=== PATIENT | male | born 1950 | race Caucasian/White ===

== ENCOUNTER 2016-10-25 14:09 | Emergency (ER) | payer MEDICARE, OTHER ==
[2016-10-25] MEDS ORDERED: cefTRIAXone 1 GM in SODIUM CHLORIDE 0.9% MINIBAG 100 ML IV STA (17:03)
[2016-10-25] MEDS ORDERED: AZITHROMYCIN INJ 500 MG in SODIUM CHLORIDE 0.9% 250 ML IV STA (17:08)
[2016-10-25] MEDS ORDERED: cefTRIAXone 1 GM VIAL ONE (17:10)
== END 2016-10-25 19:03 | disposition short-term general hospital (02) ==
DX: J18.1 Lobar pneumonia, unspecified organism (principal); L03.116 Cellulitis of left lower limb; E11.22 Type 2 diabetes mellitus with diabetic chronic kidney disease; I12.9 Hypertensive chronic kidney disease with stage 1 through stage 4 chronic kidney disease, or unspecified chronic kidney disease; N18.9 Chronic kidney disease, unspecified; Z87.01 Personal history of pneumonia (recurrent); Z79.84 Long term (current) use of oral hypoglycemic drugs; Z79.82 Long term (current) use of aspirin; Z79.899 Other long term (current) drug therapy

== ENCOUNTER 2016-10-25 19:05 | Outpatient (CLI) | payer MEDICARE, OTHER | END 2016-10-25 23:59 | disposition short-term general hospital (02) | DX: R06.02 Shortness of breath (principal) | CPT/HCPCS: A0170; A0425; A0426 ==

== ENCOUNTER 2017-06-16 13:50 | Outpatient (CLI) | payer MEDICARE, OTHER ==
[2017-06-16 19:37] LABS: IRON 55 ug/dL (45-182); TOTAL IRON BINDING CAPACITY 280 ug/dL (250-450); TRANSFERRIN 200 mg/dL (180-329)
[2017-06-16 20:07] LABS: HEMOGLOBIN A1C 0.6 g/dL
== END 2017-06-16 13:51 | disposition home or self-care (01) ==
LOC: LAB.WCP 13:50
PROVIDERS: ATTEND Family Medicine
DX: N18.5 Chronic kidney disease, stage 5 (principal); E11.9 Type 2 diabetes mellitus without complications; D64.9 Anemia, unspecified
CPT/HCPCS: 36415; 82728; 83036; 83540; 84466

== ENCOUNTER 2018-03-25 13:27 | Outpatient (CLI) | payer MEDICARE, OTHER ==
[2018-03-25 20:42] LABS: BASOPHILS # (AUTO) 0.1 10^3/uL (0.0-0.1); EOSINOPHILS # (AUTO) 0.7 10^3/uL (0.0-0.7); EOSINOPHILS % (AUTO) 13.6 %; HGB - HEMOGLOBIN 9.9 g/dL (14.0-18.0); LYMPHOCYTES # (AUTO) 0.8 10^3/uL (1.5-3.5); LYMPHOCYTES % (AUTO) 16.5 %; MEAN CORPUSCULAR HEMOGLOBIN 33.2 pg (27.0-31.0); MEAN CORPUSCULAR HGB CONC 33.9 g/dL (32.0-36.0); MEAN CORPUSCULAR VOLUME 97.9 fL (80.0-94.0); MEAN PLATELET VOLUME 9.4 fL (7.4-11.4); MONOCYTES # (AUTO) 0.3 10^3/uL (0.0-1.0); MONOCYTES % (AUTO) 6.7 %; NEUTROPHILS # (AUTO) 3.1 10^3/uL (1.5-6.6); NEUTROPHILS % (AUTO) 62.2 %; PLT - PLATELET COUNT 124 10^3/uL (130-450); RED CELL DISTRIBUTION WIDTH 16.2 % (12.0-15.0)
[2018-03-25 21:09] LABS: THYROID STIMULATING HORMONE 2.2 uIU/mL (0.34-5.60)
[2018-03-25 21:12] LABS: FERRITIN 736.8 ng/mL (23.9-336.2)
[2018-03-25 21:22] LABS: HB2 TOTAL 10.3 g/dL; HEMOGLOBIN A1C 0.45 g/dL; HEMOGLOBIN A1C % 6.1 % (4.6-6.2)
[2018-03-25 21:34] LABS: % IRON SATURATION 22 % (20-50); ALBUMIN 4.1 g/dL (3.2-5.5); ALBUMIN/GLOBULIN RATIO 1.3 (1.0-2.2); ALKALINE PHOSPHATASE 73 IU/L (42-121); ALT ALANINE AMINOTRANSFERASE 14 IU/L (10-60); AST ASPARTATE AMINOTRANSFERASE 14 IU/L (10-42); BILIRUBIN,TOTAL 0.6 mg/dL (0.2-1.0); BUN - BLOOD UREA NITROGEN 38 mg/dL (6-20); CALCIUM 8.6 mg/dL (8.5-10.3); CARBON DIOXIDE - CO2 32 mmol/L (21-32); CHLORIDE 99 mmol/L (101-111); CHOL/HDL RATIO 5.4 (<5.0); CHOLESTEROL 150 mg/dL; CREATININE 4.4 mg/dL (0.6-1.2); GFR - MDRD 13 (>89); GLUCOSE 153 mg/dL (70-100); HDL CHOLESTEROL 28 mg/dL; IRON 51 ug/dL (45-182); LDL CHOLESTEROL,CALCULATED 92 mg/dL; LDL/HDL RATIO 3.3 (<3.6); SODIUM 141 mmol/L (135-145); TOTAL IRON BINDING CAPACITY 227 ug/dL (250-450); TOTAL PROTEIN 7.2 g/dL (6.7-8.2); TRANSFERRIN 162 mg/dL (180-329); VLDL CHOLESTEROL 30 mg/dL
== END 2018-03-25 13:28 | disposition home or self-care (01) ==
LOC: LAB.WCP 13:27
PROVIDERS: ATTEND Family Medicine
DX: Z12.5 Encounter for screening for malignant neoplasm of prostate (principal); E11.9 Type 2 diabetes mellitus without complications; N19 Unspecified kidney failure; I10 Essential (primary) hypertension; D64.9 Anemia, unspecified; E78.9 Disorder of lipoprotein metabolism, unspecified
CPT/HCPCS: 36415; 80053; 80061; 82728; 83036; 83540; 84443; 84466; 85025; G0103; 83721; 84153

== ENCOUNTER 2018-05-11 12:57 | Outpatient (CLI) | payer MEDICARE, OTHER | END 2018-05-11 12:58 | disposition home or self-care (01) | LOC: NS 12:57 | PROVIDERS: ATTEND Family Medicine | DX: Z71.3 Dietary counseling and surveillance (principal); E11.9 Type 2 diabetes mellitus without complications; Z68.31 Body mass index [BMI] 31.0-31.9, adult; Z79.84 Long term (current) use of oral hypoglycemic drugs | CPT/HCPCS: 97802 ==

== ENCOUNTER 2018-05-25 14:55 | Outpatient (CLI) | payer MEDICARE, OTHER | END 2018-05-25 14:56 | disposition home or self-care (01) | LOC: NS 14:55 | PROVIDERS: ATTEND Family Medicine | DX: Z71.3 Dietary counseling and surveillance (principal); E11.9 Type 2 diabetes mellitus without complications; Z68.30 Body mass index [BMI] 30.0-30.9, adult; Z79.84 Long term (current) use of oral hypoglycemic drugs | CPT/HCPCS: 97803 ==

== ENCOUNTER 2018-06-15 14:53 | Outpatient (CLI) | payer MEDICARE, OTHER | END 2018-06-15 14:54 | disposition home or self-care (01) | LOC: NS 14:53 | PROVIDERS: ATTEND Family Medicine | DX: Z71.3 Dietary counseling and surveillance (principal); E11.9 Type 2 diabetes mellitus without complications | CPT/HCPCS: 97803 ==

== ENCOUNTER 2018-10-28 16:01 | Outpatient (CLI) | payer MEDICARE, OTHER | END 2018-10-28 16:02 | disposition short-term general hospital (02) | LOC: EMS 16:01 | PROVIDERS: ATTEND Surgery | DX: R53.1 Weakness (principal); R53.83 Other fatigue; R06.02 Shortness of breath | CPT/HCPCS: A0425; A0427 ==

== ENCOUNTER 2019-02-05 15:05 | Outpatient (CLI) | payer MEDICARE, OTHER ==
--- NOTE | 2019-02-06 00:15 | Ultrasound Report ---
Reason: UNSPECIFIED CIRRHOSIS OF LIVER Procedure Date: 02/05/2019 Accession Number: [id number] / [id number] Procedure: US - Abdomen Complete CPT Code: FULL RESULT: EXAM: ABDOMEN ULTRASOUND EXAM DATE: 02/05/2019 03:55 PM. CLINICAL HISTORY: UNSPECIFIED CIRRHOSIS OF LIVER. COMPARISON: None. TECHNIQUE: Real-time scanning was performed with static images obtained. FINDINGS: Liver: Liver parenchyma is heterogeneous and moderately hyperechoic. No discrete liver masses or intrahepatic bile duct dilation. However, evaluation for masses is limited secondary to the echogenicity. Right liver measures 17.6 cm. Main portal vein flow: Hepatopetal. Gallbladder: Gallstones are noted. No pericholecystic fluid or gallbladder wall thickening. Negative sonographic Kellogg's sign. Biliary System: Common bile duct measures 8.2 mm. No intrahepatic or extrahepatic ductal dilatation. Pancreas: Distal pancreas not well-seen. Limitations secondary to bowel gas. Remaining pancreas unremarkable. Kidneys: Right: 12.4 cm longitudinally. Normal. No contour-deforming mass, stones, or hydronephrosis. 2.2 x 1.6 x 1.6 cm mid lateral right renal anechoic cyst. No wall irregularities, mural nodules or thickened septations. Left: 12.7 cm longitudinally. Normal. No contour-deforming mass, stones, or hydronephrosis. Spleen: 15.7 x 5 x 11.7 cm. Enlarged with a volume of 480.3 cc. Incidental calcifications. No mass. Aorta and Inferior Vena Cava: Unremarkable. Other: None. IMPRESSION: 1. Enlarged hyperechoic liver. Differential includes diffuse parenchymal process versus fatty infiltration. No mass or intervertebral duct dilation. 2. Multiple gallstones. No sonographic findings concerning for acute cholecystitis. Common bile duct is mildly prominent. No evidence of choledocholithiasis. 3. Limited visualization of the distal pancreas. Remaining pancreas is grossly unremarkable. 4. Splenomegaly with a volume of 480.3 cc. RADIA
== END 2019-02-05 15:06 | disposition home or self-care (01) ==
LOC: DI 15:05
PROVIDERS: ATTEND Internal Medicine Nephrology
DX: K74.60 Unspecified cirrhosis of liver (principal); K80.20 Calculus of gallbladder without cholecystitis without obstruction; R16.2 Hepatomegaly with splenomegaly, not elsewhere classified
CPT/HCPCS: 76700

== ENCOUNTER 2020-05-12 08:00 | Outpatient (CLI) | payer MEDICARE, OTHER ==
[2020-05-12 18:16] LABS: BASOPHILS % (AUTO) 0.5 %; EOSINOPHILS % (AUTO) 19.3 %; LYMPHOCYTES % (AUTO) 23.7 %; MEAN CORPUSCULAR HEMOGLOBIN 32.9 pg (27.0-31.0); MEAN CORPUSCULAR HGB CONC 31.4 g/dL (32.0-36.0); MEAN CORPUSCULAR VOLUME 104.8 fL (80.0-94.0); MEAN PLATELET VOLUME 11.7 fL (7.4-11.4); MONOCYTES % (AUTO) 5.4 %; NEUTROPHILS % (AUTO) 50.7 %; PLT - PLATELET COUNT 112 10^3/uL (130-450); RED BLOOD COUNT 3.34 10^6/uL (4.70-6.10); RED CELL DISTRIBUTION WIDTH 15.3 % (12.0-15.0); WHITE BLOOD COUNT 5.5 x10^3/uL (4.8-10.8)
[2020-05-12 18:29] LABS: ABNORMAL LYMPHS % (MANUAL) 0 %; BAND NEUTROPHILS % (MANUAL) 0 %
[2020-05-12 18:41] LABS: ALBUMIN 4.2 g/dL (3.2-5.5); ALBUMIN/GLOBULIN RATIO 1.4 (1.0-2.2); ALKALINE PHOSPHATASE 93 IU/L (42-121); ALT ALANINE AMINOTRANSFERASE 32 IU/L (10-60); AST ASPARTATE AMINOTRANSFERASE 28 IU/L (10-42); BILIRUBIN,TOTAL 0.6 mg/dL (0.2-1.0); BUN - BLOOD UREA NITROGEN 37 mg/dL (6-20); CALCIUM 9.4 mg/dL (8.5-10.3); CARBON DIOXIDE - CO2 32 mmol/L (21-32); CHLORIDE 97 mmol/L (101-111); CHOL/HDL RATIO 5.7 (<5.0); CHOLESTEROL 183 mg/dL; CREATININE 4.5 mg/dL (0.6-1.2); GLUCOSE 176 mg/dL (70-100); HDL CHOLESTEROL 32 mg/dL; LDL CHOLESTEROL,CALCULATED 100 mg/dL; LDL/HDL RATIO 3.1 (<3.6); SODIUM 139 mmol/L (135-145); TOTAL PROTEIN 7.1 g/dL (6.7-8.2); VLDL CHOLESTEROL 51 mg/dL
[2020-05-12 19:20] LABS: BASOPHILS # (MANUAL) 0.1 10^3/uL (0-0.1); BASOPHILS % (MANUAL) 1 %; EOSINOPHILS # (MANUAL) 0.8 10^3/uL (0-0.7); LYMPHOCYTES # (MANUAL) 1.3 10^3/uL (1.5-3.5); LYMPHOCYTES % (MANUAL) 24 %; MONOCYTES # (MANUAL) 0.2 10^3/uL (0.0-1.0)
[2020-05-12 19:23] LABS: DIFFERENTIAL COMMENT MANUAL DIFFERENTIAL; PLATELET ESTIMATE, MANUAL DECREASED (<130,000) (NORMAL); PLATELET MORPHOLOGY NORMAL APPEARANCE (NORMAL)
[2020-05-12 20:16] LABS: HEMOGLOBIN A1c% 6.9 % (4.27-6.07)
== END 2020-05-12 08:01 | disposition home or self-care (01) ==
LOC: LAB.WCP 08:00
PROVIDERS: ATTEND Family Medicine
DX: E11.9 Type 2 diabetes mellitus without complications (principal); I10 Essential (primary) hypertension; E78.5 Hyperlipidemia, unspecified
CPT/HCPCS: 36415; 80053; 80061; 82043; 82570; 83036; 83721; 84443; 85025

== ENCOUNTER 2020-05-15 08:00 | Outpatient (CLI) | payer MEDICARE, OTHER ==
[2020-05-15 18:09] LABS: CREATININE,URINE 55.3 mg/dL; MICROALBUM/CREATININE RATIO,UR 309.2 ug/mg (<30.0); MICROALBUMIN,URINE 17.1 mg/dL (0-300.0)
== END 2020-05-15 23:59 | disposition home or self-care (01) ==
LOC: LAB.WCP 08:00
PROVIDERS: ATTEND Family Medicine
DX: E11.9 Type 2 diabetes mellitus without complications (principal); I10 Essential (primary) hypertension; E78.5 Hyperlipidemia, unspecified
CPT/HCPCS: 82043; 82570

== ENCOUNTER 2020-12-26 10:26 | Outpatient (CLI) | payer MEDICARE, OTHER | END 2020-12-26 10:27 | disposition short-term general hospital (02) | LOC: EMS 10:26 | DX: T82.590A Other mechanical complication of surgically created arteriovenous fistula, initial encounter (principal) | CPT/HCPCS: A0425; A0429 ==

== ENCOUNTER 2021-01-11 15:54 | Outpatient (CLI) | payer MEDICARE, OTHER | END 2021-01-11 15:55 | disposition short-term general hospital (02) | LOC: EMS 15:54 | DX: R42 Dizziness and giddiness (principal); Z91.15 Patient's noncompliance with renal dialysis | CPT/HCPCS: A0425; A0429 ==

== ENCOUNTER 2021-03-28 14:15 | Outpatient (CLI) | payer MEDICARE, OTHER | END 2021-03-28 23:59 | disposition home or self-care (01) | LOC: LAB.WCP 14:15 | PROVIDERS: ATTEND Family Medicine | DX: Z20.822 Contact with and (suspected) exposure to COVID-19 (principal) ==

== ENCOUNTER 2021-08-31 09:53 | Outpatient (CLI) | payer MEDICARE, OTHER | END 2021-08-31 09:54 | disposition short-term general hospital (02) | LOC: EMS 09:53 | DX: R53.1 Weakness (principal); R42 Dizziness and giddiness; Z99.2 Dependence on renal dialysis | CPT/HCPCS: A0425; A0429 ==

== ENCOUNTER 2022-01-10 15:46 | Outpatient (CLI) | payer MEDICARE, OTHER ==
--- NOTE | 2022-01-11 11:27 | Ultrasound Report ---
PROCEDURE: Abdomen Complete INDICATIONS: Cirrhosis and ascites TECHNIQUE: Real-time scanning was performed of the abdominal and retroperitoneal organs, with image documentatio n. COMPARISON: 02/05/2019 abdominal ultrasound FINDINGS: Liver: Coarsened hepatic echotexture with surface nodularity. Findings are consistent with cirrhosis. No focal hepatic mass. Main portal vein measures 17 mm in diameter at the pierce hepatis, slightly en larged. Normal flow direction in the portal vein. Gallbladder: Normally distended gallbladder with no wall thickening, pericholecystic fluid, sludge, o r gallstone. Biliary ducts: Normal diameter intrahepatic and extrahepatic biliary ducts. Pancreas: Obscured by bowel gas. Spleen: Moderate hepatomegaly measuring up to 16 cm. Kidneys: Normal size and appearance of both kidneys. Simple cyst in the right upper pole measuring 2. 3 cm. No shadowing calculus or hydronephrosis. Aorta: Visualized aorta is normal in caliber at less than 3 cm. Iliacs: Proximal common iliac arteries are normal in caliber at less than 2.5 cm. IVC: Intrahepatic inferior vena cava is patent. Miscellaneous: No free abdominal fluid. IMPRESSION: Cirrhosis with borderline enlargement of the main portal vein and moderate splenomegaly suggesting po rtal hypertension. No hepatic mass demonstrated. No ascites. Reviewed by: Nito Cedillo MD on 01/11/2022 11:25 AM PDT Approved by: Nito Cedillo MD on 01/11/2022 11:25 AM PDT Station ID: [id number]
== END 2022-01-10 15:47 | disposition home or self-care (01) ==
LOC: DI 15:46
PROVIDERS: ATTEND Internal Medicine Nephrology
DX: R18.8 Other ascites (principal); K74.60 Unspecified cirrhosis of liver; I87.8 Other specified disorders of veins

== ENCOUNTER 2022-05-29 19:42 | Outpatient (CLI) | payer MEDICARE, OTHER | END 2022-05-29 19:43 | disposition short-term general hospital (02) | LOC: EMS 19:42 | DX: I96 Gangrene, not elsewhere classified (principal); R23.8 Other skin changes; Z99.2 Dependence on renal dialysis | CPT/HCPCS: A0425; A0429 ==

== ENCOUNTER 2022-06-17 12:20 | Outpatient (CLI) | payer MEDICARE, OTHER | END 2022-06-17 12:21 | disposition critical access hospital (66) | LOC: EMS 12:20 | DX: R21 Rash and other nonspecific skin eruption (principal); M79.89 Other specified soft tissue disorders; Z95.828 Presence of other vascular implants and grafts; Z99.2 Dependence on renal dialysis | CPT/HCPCS: A0425; A0429 ==

== ENCOUNTER 2022-06-17 12:29 | Emergency (ER) | payer MEDICARE, OTHER ==
--- NOTE | 2022-06-17 15:37 | ED Physician Documentation ---
PD HPI SKIN - Stated complaint Stated Complaint: RASH - Chief complaint Chief Complaint: Wound - History obtained from History obtained from: Patient - History of Present Illness Timing - onset: Yesterday Timing - duration: Days (1-2) Timing - details: Gradual onset, Still present Location: RUE (noted an itchy rash outer right elbow and forearm yesterday than increased today and has now some redness and warmth to it as well. goes to the volar forearm and distal biceps area. There is not redness/rash at his dialysis fistula site however. no tenderness there.) Quality / character: Itchy, Discolored, Swelling. No: Vesicular, Draining Associated symptoms: No: Fever, Myalgias, Headache, Facial swelling Contributing factors: No: Exposed to medication, Exposed to soap / lotion, Recent illness Similar symptoms before: No diagnosis (he states he has had similar rash/itching a few times in the past and lasts few days. Had not had the redness per se though in the past.) Recently seen: Clinic (gets dialysis /, with recent dialysis 2 days ago without problems. Denies new soaps, medical records tech, etc at the site.) Review of Systems Constitutional: denies: Fever, Chills Skin: reports: Rash (just right forearm/elbow the past day.) Neurologic: denies: Focal weakness, Numbness PD PAST MEDICAL HISTORY - Past Medical History Cardiovascular: Hypertension Respiratory: Pneumonia Endocrine/Autoimmune: Type 2 diabetes GI: None : Dialysis, Renal insuffiency HEENT: None Psych: None Musculoskeletal: None Derm: Other - Past Surgical History Past Surgical History: Yes General: Appendectomy HEENT: Cataracts - Present Medications Home Medications: Ambulatory Orders Medication Instructions Recorded Confirmed Aspirin [Aspir 81] 81 mg PO DAILY 12/14/12 11/25/17 Finasteride [Proscar] 5 mg PO DAILY 12/14/12 11/25/17 Furosemide [Lasix] 80 mg PO DAILY 12/14/12 11/25/17 Pnv95/Ferrous Fumarate/FA 1 each PO DAILY 12/14/12 11/25/17 [ Multivitamins Tablet] Calcium Carbonate [Tums] 750 mg PO TID 03/09/13 11/25/17 Simvastatin [Zocor] 10 mg PO HS 03/09/13 11/25/17 Tamsulosin [Flomax] 0.4 mg PO DAILY 03/09/13 11/25/17 hydroCHLOROthiazide 25 mg PO DAILY 03/23/13 11/25/17 [Hydrochlorothiazide] Brinzolamide 1% Ophth Drops [Azopt] 1 drops OPTH TID 04/13/13 11/25/17 hydrOXYzine PAMOATE [Vistaril] 25 mg PO Q8H PRN 05/04/13 11/25/17 Pantoprazole [Protonix] 40 mg PO BID 06/24/14 11/25/17 Timolol 0.5% Ophth Drops [Timoptic 1 drop RIGHTEYE BID 06/24/14 11/25/17 0.5% Ophth Drops] Losartan [Cozaar] 0.5 tab PO DAILY 01/03/15 11/25/17 glipiZIDE [Glipizide ER] 2.5 mg PO DAILY 04/11/15 11/25/17 Betamethasone Valerate 1 applic TP BID 5 Days #30 gm 06/17/22 L. Acidophilus/Pectin, Pender 1 each PO TID #20 tablet 06/17/22 [Acidophilus-Pectin Captab] cephALEXin [Keflex] 500 mg PO TID 5 Days #15 cap 06/17/22 hydrOXYzine PAMOATE [Vistaril] 25 mg PO Q8H PRN #15 cap 06/17/22 - Allergies Allergies/Adverse Reactions: Allergies Allergy/AdvReac Type Severity Reaction Status Date / Time No Known Drug Allergies Allergy Verified 06/17/22 12:36 - Social History Does the pt smoke?: No Smoking Status: Never smoker Does the pt drink ETOH?: No Does the pt have substance abuse?: No - Immunizations Immunizations are current?: Yes - POLST Patient has POLST: No PD ED PE NORMAL - Vitals Vital signs reviewed: Yes - General General: Alert and oriented X 3, No acute distress, Well developed/nourished - HEENT HEENT: Pharynx benign - Cardiac Cardiac: RRR, No murmur - Respiratory Respiratory: Clear bilaterally - Abdomen Abdomen: Soft, Non tender - Derm Derm: Normal color, Warm and dry - Extremities Extremities: Other (right upper arm dialysis area without rash nor redness. normal thrill. the lateral elbow and forearm and then medial to the volar forearm with scaly, superficially excoriated (c/w scratching), prurutic rash with some warmth/redness in volar portion. no drainage. ) - Neuro Neuro: Alert and oriented X 3, No motor deficit, No sensory deficit, Normal speech Results - Vitals Vitals: Vital Signs - 24 hr 06/17/22 06/17/22 12:33 16:32 Temperature 36.8 C Heart Rate 63 67 Respiratory 20 16 Rate Blood Pressure 171/61 H 157/68 H O2 Saturation 100 98 If not protocol 2 : Oxygen Flow, liters/minute Oxygen O2 Source Nasal cannula PD MEDICAL DECISION MAKING - ED course Complexity details: considered differential (itchy eczema appearing rash on elbow/forearm with possible cellulitic appearing redness in portion. no drainage/fluid for obtaining culture. will empirically cover with keflex and topical steroid. he asks for vistaril for itch. ), d/w patient Departure - Departure Disposition: 01 Home, Self Care Clinical Impression: Eczema of right upper extremity Cellulitis Qualifiers: Site of cellulitis: extremity Site of cellulitis of extremity: upper extremity Laterality: right Qualified Code(s): L03.113 - Cellulitis of right upper limb Condition: Stable Record reviewed to determine appropriate education?: Yes Follow-Up: Chicho Alanis MD [Primary Care Provider] - Prescriptions: L. Acidophilus/Pectin, Pender [Acidophilus-Pectin Captab] 1 each PO TID #20 tablet Betamethasone Valerate 1 applic TP BID 5 Days #30 gm cephALEXin [Keflex] 500 mg PO TID 5 Days #15 cap hydrOXYzine PAMOATE [Vistaril] 25 mg PO Q8H PRN #15 cap PRN Reason: Itching Comments: This looks like it could be either an irritation of the skin around the elbow (eczema or dermatitis) or potentially a skin infection called cellulitis. It could actually be a bit of both given some itchiness and initial rash around the elbow with now increased swelling and redness and a larger area. For the eczema/dermatitis, I would suggest cleaning which is soap and water once or twice daily and applying betamethasone steroid ointment lightly to the main area of it around the forearm/elbow. You can use a skin lotion such as Eucerin over that to help moisturize it. For concern of cellulitis, cephalexin 3 times daily for the next 5 days. Use Vistaril if needed for itching symptoms. There is no drainage or fluid for which a culture could be obtained. We will just assume a combination of eczema and cellulitis. Recheck if not improved well over the next several days and return to her and if worsening general symptoms. I sent your prescription to [facility] in [place] and also printed a copy in case you need to fill it somewhere else instead. Discharge Date/Time: 06/17/22 17:15
[2022-06-17] MEDS ORDERED: EMOLLIENT CREAM 57 GM TUBE TOP STA (15:52)
[2022-06-17] MEDS ORDERED: DEXAMETHASONE 10 MG/ML VIAL PO STA (15:52)
[2022-06-17] MEDS ORDERED: hydrOXYzine PAMOATE 25 MG CAPSULE PO STA (15:52)
[2022-06-17] MEDS ORDERED: CHERRY SYRUP 10 ML UDC PO ONE (15:52)
[2022-06-17] MEDS ORDERED: cephALEXin 250 MG CAPSULE PO STA (15:52)
[2022-06-17 16:32] VITALS: BP 157/68
== END 2022-06-17 17:15 | disposition home or self-care (01) ==
LOC: EDUNIT# → ED 12:29
DX: L30.9 Dermatitis, unspecified (principal); L03.113 Cellulitis of right upper limb
CPT/HCPCS: 99282; 99284; A9270

== ENCOUNTER 2022-08-02 08:00 | Outpatient (CLI) | payer MEDICARE, OTHER | END 2022-08-02 23:59 | disposition home or self-care (01) | LOC: LAB.R 08:00 | DX: E11.621 Type 2 diabetes mellitus with foot ulcer (principal); M86.171 Other acute osteomyelitis, right ankle and foot; L08.9 Local infection of the skin and subcutaneous tissue, unspecified | CPT/HCPCS: 87070; 87077; 87181; 87205 ==

== ENCOUNTER 2022-12-16 12:49 | Outpatient (CLI) | payer MEDICARE, OTHER | END 2022-12-16 12:50 | disposition critical access hospital (66) | LOC: EMS 12:49 | DX: L08.9 Local infection of the skin and subcutaneous tissue, unspecified (principal) | CPT/HCPCS: A0425; A0429 ==

== ENCOUNTER 2022-12-16 13:14 | Emergency (ER) | payer MEDICARE, OTHER ==
[2022-12-16 14:00] LABS: BASOPHILS % (AUTO) 0.4 %; EOSINOPHILS % (AUTO) 17.6 %; HGB - HEMOGLOBIN 9.5 g/dL (14.0-18.0); LYMPHOCYTES # (AUTO) 0.7 10^3/uL (1.5-3.5); MEAN CORPUSCULAR HEMOGLOBIN 31.8 pg (27.0-31.0); MEAN CORPUSCULAR HGB CONC 30.6 g/dL (32.0-36.0); MEAN CORPUSCULAR VOLUME 103.7 fL (80.0-94.0); MEAN PLATELET VOLUME 10.3 fL (7.4-11.4); MONOCYTES # (AUTO) 0.3 10^3/uL (0.0-1.0); MONOCYTES % (AUTO) 4.8 %; NEUTROPHILS # (AUTO) 3.5 10^3/uL (1.5-6.6); NEUTROPHILS % (AUTO) 64.8 %; PLT - PLATELET COUNT 91 10^3/uL (130-450); RED BLOOD COUNT 2.99 10^6/uL (4.70-6.10); RED CELL DISTRIBUTION WIDTH 14.7 % (12.0-15.0); WHITE BLOOD COUNT 5.4 x10^3/uL (4.8-10.8)
--- NOTE | 2022-12-16 16:46 | ED Physician Documentation ---
History of Present Illness - Stated complaint Stated Complaint: WOUND - Chief complaint Chief Complaint: Ext Problem - History obtained from History obtained from: Patient - Additonal information Additional information: The patient is brought to the emergency department by EMS For chief complaint of "my home nurse thought my right leg was more swollen." The patient also states that he was found to have a new discolored area on the bottom of his toe on the left and that the nurse told him that he might need to come in and "get his circulation improved with an angioplasty or something". The patient is not sure how long the discoloration has been there and he states that the foot does not feel any different. He has peripheral neuropathy and goes to dialysis 3 days a week and just had dialysis yesterday. He states he has been having to have more fluid removed in general, and that his lower extremities are normally swollen but the right would just do it out is more edematous than the left ever since he had his dialysis yesterday. The patient states he is otherwise feeling just fine. He states that his legs normally are a pinkish-red erythematous color from the knees down and that this is not any different than usual. 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 He denies injuring it in any way. He is not sure how long the discolored area has been on the sole of his left third toe. He states he does look at his feet but he never really looks At the plantar aspect, and states that his home nurse came today and had not seen that there previously that she could remember. No other complaints at this time. PD PAST MEDICAL HISTORY - Past Medical History Cardiovascular: Hypertension Respiratory: Pneumonia Endocrine/Autoimmune: Type 2 diabetes GI: None : Dialysis, Renal insuffiency HEENT: None Psych: None Musculoskeletal: None Derm: Other - Past Surgical History Past Surgical History: Yes General: Appendectomy HEENT: Cataracts - Present Medications Home Medications: Ambulatory Orders Medication Instructions Recorded Confirmed Aspirin [Aspir 81] 81 mg PO DAILY 12/14/12 11/25/17 Finasteride [Proscar] 5 mg PO DAILY 12/14/12 11/25/17 Furosemide [Lasix] 80 mg PO DAILY 12/14/12 11/25/17 Pnv95/Ferrous Fumarate/FA 1 each PO DAILY 12/14/12 11/25/17 [ Multivitamins Tablet] Calcium Carbonate [Tums] 750 mg PO TID 03/09/13 11/25/17 Simvastatin [Zocor] 10 mg PO HS 03/09/13 11/25/17 Tamsulosin [Flomax] 0.4 mg PO DAILY 03/09/13 11/25/17 hydroCHLOROthiazide 25 mg PO DAILY 03/23/13 11/25/17 [Hydrochlorothiazide] Brinzolamide 1% Ophth Drops [Azopt] 1 drops OPTH TID 04/13/13 11/25/17 hydrOXYzine PAMOATE [Vistaril] 25 mg PO Q8H PRN 05/04/13 11/25/17 Pantoprazole [Protonix] 40 mg PO BID 06/24/14 11/25/17 Timolol 0.5% Ophth Drops [Timoptic 1 drop RIGHTEYE BID 06/24/14 11/25/17 0.5% Ophth Drops] Losartan [Cozaar] 0.5 tab PO DAILY 01/03/15 11/25/17 glipiZIDE [Glipizide ER] 2.5 mg PO DAILY 04/11/15 11/25/17 Betamethasone Valerate 1 applic TP BID 5 Days #30 gm 06/17/22 L. Acidophilus/Pectin, [place] 1 each PO TID #20 tablet 06/17/22 [Acidophilus-Pectin Captab] cephALEXin [Keflex] 500 mg PO TID 5 Days #15 cap 06/17/22 hydrOXYzine PAMOATE [Vistaril] 25 mg PO Q8H PRN #15 cap 06/17/22 - Allergies Allergies/Adverse Reactions: Allergies Allergy/AdvReac Type Severity Reaction Status Date / Time No Known Drug Allergies Allergy Verified 06/17/22 12:36 - Social History Does the pt smoke?: No Smoking Status: Never smoker Does the pt drink ETOH?: No Does the pt have substance abuse?: No - Immunizations Immunizations are current?: Yes - POLST Patient has POLST: No PD ED PE NORMAL - Vitals Vital signs reviewed: Yes - General General: Alert and oriented X 3, No acute distress, Well developed/nourished - HEENT HEENT: Atraumatic, PERRL, EOMI, Moist mucous membranes - Neck Neck: Supple, no meningeal sign - Cardiac Cardiac: RRR, No murmur, Strong equal pulses - Respiratory Respiratory: No respiratory distress, Clear bilaterally - Abdomen Abdomen: Soft, Non tender, Non distended - Derm Derm: Warm and dry, Other (Mild erythema with chronic skin changes extending from feet to just distal to the knees. Resolving hemorrhagic bulla on plantar aspect of third toe, with shriveling and purpleishreddishblack discoloration. No gangrenous tissue. Healing ulcer over dorsum of left middle toe.) - Extremities Extremities: No deformity, Other (Moderate edema with chronic skin changes right lower extremity with amputation of all toes of right foot. Mild edema with chronic skin changes left lower extremity. No deformity.) - Neuro Neuro: Alert and oriented X 3 - Psych Psych: Normal mood, Normal affect Results - Vitals Vitals: Vital Signs - 24 hr 12/16/22 12/16/22 13:16 15:35 Temperature 36.6 C Heart Rate 65 61 Respiratory 20 14 Rate Blood Pressure 159/88 H 184/85 H O2 Saturation 98 97 Oxygen O2 Source Room air - Labs Labs: Laboratory Tests 12/16/22 13:51 WBC 5.4 RBC 2.99 L Hgb 9.5 L Hct 31.0 L MCV 103.7 H MCH 31.8 H MCHC 30.6 L RDW 14.7 Plt Count 91 L MPV 10.3 Neut # (Auto) 3.5 Lymph # (Auto) 0.7 L R[place]y # (Auto) 0.3 Eos # (Auto) 1.0 H Baso # (Auto) 0.0 Absolute Nucleated RBC 0.00 Nucleated RBC % 0.0 - Rads (name of study) Duplex ultrasound right lower extremity Relevant Findings:: Final report received, See rad report (No DVT. Toledo's cyst noted.) PD Medical Decision Making - ED course Complexity details: reviewed results, re-evaluated patient, considered differential, d/w patient ED course: I discussed with the patient that he appears to have a resolving blood blister on the bottom of his toe rather than The sudden appearance of gangrene which is what I assume his home nurse was concerned about. Furthermore, I have discussed with the patient that we do not have angioplasty capabilities here at would be and that this would certainly not be the first line of defense in a patient with chronic peripheral neuropathy. At this point in time, the patient's lower extremity skin coloration is at baseline according to the patient and he is afebrile with a normal white count and otherwise normal vital signs. The patient has had an ultrasound done here in the emergency department to address the increase in swelling in his right lower extremity. This has been done and found to be negative for DVT. At this point in time, I feel the patient stable for discharge home. He may continue to follow-up with his slitter cut off operator for further concerns but at this point, no emergent condition has been identified. Departure - Departure Disposition: 01 Home, Self Care Clinical Impression: Blood blister, Lower leg edema Condition: Stable Instructions: ED Edema Legs Bilateral Comments: The ultrasound of your right leg looks goodno evidence of a blood clot. You have reported that the discoloration of the skin of your legs is chronic and at baseline. You have a normal white blood cell count and no fever and considering this plus the skin color been at baseline, there is no evidence of skin infection at this time. As far as the concern by her home nurse that you may "need angioplasty", we do not have angioplasty capabilities at this hospital. Nonetheless, there would be no role for emergent angioplasty as you have a good pulse in your left foot and good capillary refill. Additionally, the black spot on the bottom of your toe, which presumably was thought to be gangrene by her nurse, is actually resolving blood blister. This is most likely been there for some time went without notice for a while. This will resolve on its own. Please follow-up with your slitter cut off operator for further concerns. Please also keep your next dialysis appointment.
--- NOTE | 2022-12-16 17:04 | Ultrasound Report ---
PROCEDURE: Duplex Ext Veins Right INDICATIONS: increased swelling, pain TECHNIQUE: Real-time imaging, as well as color and pulse Doppler interrogation, were performed of the lower extr emity deep veins from the inguinal ligament to the popliteal fossa. COMPARISON: None. FINDINGS: The deep veins are normally compressible, and free of intraluminal thrombus. Color and pu lse Doppler demonstrate normal phasic intraluminal flow. There is normal augmentation response to di stal compression maneuver. 5.6 x 0.9 x 2.6 cm Toledo's cyst is seen. There is also a 3.8 x 0.7 x 3.8 cm cystic structure in poste rior lateral aspect of right knee. IMPRESSION: 1. No evidence of DVT in visualized right lower extremity veins. 2. Toledo's cyst as above. 3. Nonspecific soft tissues cystic structure in posterior lateral right knee as described above which may represent fluid communication with right knee joint space. Reviewed by: Alfonso Fitzgerald MD on 12/16/2022 5:02 PM PDT Approved by: Alfonso Fitzgerald MD on 12/16/2022 5:02 PM PDT Station ID: [id number]
[2022-12-16 17:40] VITALS: BP 126/85
== END 2022-12-16 17:37 | disposition home or self-care (01) ==
LOC: EDUNIT# → ED 13:14
DX: S90.426A Blister (nonthermal), unspecified lesser toe(s), initial encounter (principal); X58.XXXA Exposure to other specified factors, initial encounter; R60.0 Localized edema; I12.0 Hypertensive chronic kidney disease with stage 5 chronic kidney disease or end stage renal disease; E11.22 Type 2 diabetes mellitus with diabetic chronic kidney disease; N18.6 End stage renal disease; Z99.2 Dependence on renal dialysis; Z79.82 Long term (current) use of aspirin; Z79.899 Other long term (current) drug therapy; Z79.84 Long term (current) use of oral hypoglycemic drugs
CPT/HCPCS: 36415; 85025; 99283; 99284

== ENCOUNTER 2023-02-21 09:41 | Outpatient (CLI) | payer MEDICARE, OTHER | END 2023-02-21 09:42 | disposition critical access hospital (66) | LOC: EMS 09:41 | DX: S91.301A Unspecified open wound, right foot, initial encounter (principal); R23.8 Other skin changes; R50.9 Fever, unspecified; X58.XXXA Exposure to other specified factors, initial encounter | CPT/HCPCS: A0425; A0429 ==

== ENCOUNTER 2023-02-21 10:00 | Emergency (ER) | payer MEDICARE, OTHER ==
[2023-02-21 11:05] LABS: BASOPHILS % (AUTO) 0.2 %; EOSINOPHILS # (AUTO) 0.4 10^3/uL (0.0-0.7); EOSINOPHILS % (AUTO) 6.8 %; HCT - HEMATOCRIT 29.8 % (42.0-52.0); HGB - HEMOGLOBIN 9.1 g/dL (14.0-18.0); LYMPHOCYTES # (AUTO) 0.4 10^3/uL (1.5-3.5); LYMPHOCYTES % (AUTO) 5.5 %; MEAN CORPUSCULAR HEMOGLOBIN 30.7 pg (27.0-31.0); MEAN CORPUSCULAR HGB CONC 30.5 g/dL (32.0-36.0); MEAN CORPUSCULAR VOLUME 100.7 fL (80.0-94.0); MEAN PLATELET VOLUME 10.5 fL (7.4-11.4); MONOCYTES # (AUTO) 0.5 10^3/uL (0.0-1.0); MONOCYTES % (AUTO) 7.4 %; NEUTROPHILS % (AUTO) 79.8 %; PLT - PLATELET COUNT 131 10^3/uL (130-450); RED BLOOD COUNT 2.96 10^6/uL (4.70-6.10); WHITE BLOOD COUNT 6.3 x10^3/uL (4.8-10.8)
[2023-02-21 11:20] LABS: ALBUMIN 3.8 g/dL (3.2-5.5); ALBUMIN/GLOBULIN RATIO 1.1 (1.0-2.2); BILIRUBIN,TOTAL 1.1 mg/dL (0.2-1.0); CALCIUM 9.4 mg/dL (8.5-10.3); CREATININE 5.2 mg/dL (0.6-1.3); POTASSIUM 4.2 mmol/L (3.5-4.5); TOTAL PROTEIN 7.4 g/dL (6.4-8.9)
--- NOTE | 2023-02-21 11:32 | ED Physician Documentation ---
PD HPI LOWER EXT INJURY - Stated complaint Stated Complaint: FT WOUND - Chief complaint Chief Complaint: Ext Problem - History obtained from History obtained from: Patient - Additional information Additional information: Patient is a 72-year-old presenting for evaluation of wound to his right foot that has been followed by wound care. Patient reports he has home health that comes every 2 to 3 days to change the dressing on this wound. He states that there was a new person who came to see the wound today who recommended he come to the emergency department for evaluation of the wound. He is unsure of how long he has had drainage from the wound. 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 His it generalist is Shelby Olivas in [place]. Patient reports that the home health aides did call her. He denies any known fevers. He is a dialysis patient and was dialyzed yesterday. He denies missing any recent days of dialysis. Patient does wear oxygen at home. Review of Systems Constitutional: denies: Fever Cardiac: denies: Chest pain / pressure Respiratory: denies: Dyspnea GI: denies: Abdominal Pain PD PAST MEDICAL HISTORY - Past Medical History Cardiovascular: Hypertension Respiratory: Pneumonia Endocrine/Autoimmune: Type 2 diabetes GI: None : Dialysis, Renal insuffiency HEENT: None Psych: None Musculoskeletal: None Derm: Other - Past Surgical History Past Surgical History: Yes General: Appendectomy HEENT: Cataracts - Present Medications Home Medications: Ambulatory Orders Medication Instructions Recorded Confirmed Aspirin [Aspir 81] 81 mg PO DAILY 12/14/12 11/25/17 Finasteride [Proscar] 5 mg PO DAILY 12/14/12 11/25/17 Furosemide [Lasix] 80 mg PO DAILY 12/14/12 11/25/17 Pnv95/Ferrous Fumarate/FA 1 each PO DAILY 12/14/12 11/25/17 [ Multivitamins Tablet] Calcium Carbonate [Tums] 750 mg PO TID 03/09/13 11/25/17 Simvastatin [Zocor] 10 mg PO HS 03/09/13 11/25/17 Tamsulosin [Flomax] 0.4 mg PO DAILY 03/09/13 11/25/17 hydroCHLOROthiazide 25 mg PO DAILY 03/23/13 11/25/17 [Hydrochlorothiazide] Brinzolamide 1% Ophth Drops [Azopt] 1 drops OPTH TID 04/13/13 11/25/17 hydrOXYzine PAMOATE [Vistaril] 25 mg PO Q8H PRN 05/04/13 11/25/17 Pantoprazole [Protonix] 40 mg PO BID 06/24/14 11/25/17 Timolol 0.5% Ophth Drops [Timoptic 1 drop RIGHTEYE BID 06/24/14 11/25/17 0.5% Ophth Drops] Losartan [Cozaar] 0.5 tab PO DAILY 01/03/15 11/25/17 glipiZIDE [Glipizide ER] 2.5 mg PO DAILY 04/11/15 11/25/17 Betamethasone Valerate 1 applic TP BID 5 Days #30 gm 06/17/22 L. Acidophilus/Pectin, Brooks 1 each PO TID #20 tablet 06/17/22 [Acidophilus-Pectin Captab] cephALEXin [Keflex] 500 mg PO TID 5 Days #15 cap 06/17/22 hydrOXYzine PAMOATE [Vistaril] 25 mg PO Q8H PRN #15 cap 06/17/22 Doxycycline Hyclate 100 mg PO BID #20 tab 02/21/23 cephALEXin [Keflex] 500 mg PO BID 10 Days #20 cap 02/21/23 - Allergies Allergies/Adverse Reactions: Allergies Allergy/AdvReac Type Severity Reaction Status Date / Time No Known Drug Allergies Allergy Verified 06/17/22 12:36 - Social History Does the pt smoke?: No Smoking Status: Never smoker Does the pt drink ETOH?: No Does the pt have substance abuse?: No - Immunizations Immunizations are current?: Yes - POLST Patient has POLST: No PD ED PE NORMAL - General General: Alert and oriented X 3, No acute distress, Well developed/nourished - HEENT HEENT: Atraumatic - Neck Neck: Supple, no meningeal sign - Cardiac Cardiac: RRR, No murmur, Strong equal pulses - Respiratory Respiratory: No respiratory distress, Clear bilaterally - Abdomen Abdomen: Soft, Non tender - Derm Derm: Other (Chronic skin changes to bilateral lower extremities with erythema and scaling) - Extremities Extremities: Other (Right midfoot amputation, 2 cm ulceration to lateral aspect of right foot with serous drainage) Results - Vitals Vitals: Vital Signs - 24 hr 02/21/23 02/21/23 10:06 12:08 Temperature 37.7 C 37.3 C Heart Rate 78 79 Respiratory 20 18 Rate Blood Pressure 103/55 L 180/80 H O2 Saturation 88 L 94 If not protocol 2 : Oxygen Flow, liters/minute Oxygen O2 Source Nasal cannula - Labs Labs: Microbiology 02/21/23 10:41 Wound Culture - Preliminary Foot - Right Laboratory Tests 02/21/23 02/21/23 10:56 10:56 WBC 6.3 RBC 2.96 L Hgb 9.1 L Hct 29.8 L MCV 100.7 H MCH 30.7 MCHC 30.5 L RDW 16.0 H Plt Count 131 MPV 10.5 Neut # (Auto) 5.0 Lymph # (Auto) 0.4 L [place] # (Auto) 0.5 Eos # (Auto) 0.4 Baso # (Auto) 0.0 Absolute Nucleated RBC 0.00 Nucleated RBC % 0.0 Sodium 137 Potassium 4.2 Chloride 95 L Carbon Dioxide 34 H Anion Gap 8.0 BUN 33 H Creatinine 5.2 H Estimated GFR (MDRD) 11 L Glucose 146 H Calcium 9.4 Total Bilirubin 1.1 H AST 16 ALT 12 Alkaline Phosphatase 126 H Total Protein 7.4 Albumin 3.8 Globulin 3.6 Albumin/Globulin Ratio 1.1 PD Medical Decision Making - ED course Complexity details: reviewed results, re-evaluated patient, d/w patient ED course: Patient presenting for evaluation of diabetic foot wound. He is afebrile, avoid putting pressure on the foot. He is advised on concerning symptoms to return for. Denies pain. Symptoms do not suggest necrotizing infection. CBC and chemistries were reviewed and without significant acute findings. Wound culture was obtained. I did consult with his it generalist and sent an image of his wound. Dr Pereira recommends PO antibiotics and close follow-up. Reviewed this plan with the patient who is agreeable. Patient is advised on treatment plan as well as concerning symptoms to return for. Departure - Departure Disposition: 01 Home, Self Care Clinical Impression: Infected ulcer of skin, ESRD (end stage renal disease) on dialysis Condition: Stable Instructions: Diabetic Foot Ulcer Dc Follow-Up: Shelby Pereira DPM [Physician No Access] - Prescriptions: Doxycycline Hyclate 100 mg PO BID #20 tab cephALEXin [Keflex] 500 mg PO BID 10 Days #20 cap Comments: You were evaluated for an ulcer to your right foot that is showing some signs of infection. I have consulted with your it generalist, Dr. Pereira. We are starting you on 2 antibiotics and I have sent these prescriptions to [facility] in [place]. Please make sure to take the antibiotics as directed. On days you go to dialysis I would take your first dose of Keflex after dialysis. Please have close follow-up with your it generalist and primary care provider. Return the emergency department if you develop any worsening symptoms. Please stay off of this wound as well. Do not ambulate on this foot. Forms: PCP List Discharge Date/Time: 02/21/23 13:22
[2023-02-21 12:18] VITALS: BP 180/80; O2SAT 94
--- NOTE | 2023-02-24 18:48 | ED Physician Documentation ---
ED Addendum - Addendum Addendum: 02/24/23 18:47 The patient's culture came back showing 2 positive growth of Staph aureus as well as Enterococcus faecalis. The patient had been discharged on doxycycline and Keflex. The Staph aureus is sensitive to the doxycycline. The Enterococcus is not but is sensitive to penicillins and ampicillin would presume therefore the cephalexin. The patient would be adequately covered by the current antibiotics. No change needed at this point. I will have nursing staff advise.
== END 2023-02-21 13:22 | disposition home or self-care (01) ==
LOC: ED 10:00
DX: E11.621 Type 2 diabetes mellitus with foot ulcer (principal); L97.519 Non-pressure chronic ulcer of other part of right foot with unspecified severity; E11.22 Type 2 diabetes mellitus with diabetic chronic kidney disease; I12.0 Hypertensive chronic kidney disease with stage 5 chronic kidney disease or end stage renal disease; N18.6 End stage renal disease; Z99.2 Dependence on renal dialysis; Z79.84 Long term (current) use of oral hypoglycemic drugs; A49.01 Methicillin susceptible Staphylococcus aureus infection, unspecified site
CPT/HCPCS: 36415; 80053; 85025; 87070; 87077; 87181; 87205; 99283

== ENCOUNTER 2023-02-23 13:17 | Outpatient (CLI) | payer MEDICARE, OTHER | END 2023-02-23 23:59 | disposition short-term general hospital (02) | LOC: EMS 13:17 | DX: M25.512 Pain in left shoulder (principal); W18.39XA Other fall on same level, initial encounter; Y92.091 Bathroom in other non-institutional residence as the place of occurrence of the external cause; Z99.2 Dependence on renal dialysis; Z99.81 Dependence on supplemental oxygen | CPT/HCPCS: A0425; A0429 ==

== ENCOUNTER 2023-03-12 08:00 | Outpatient (CLI) | payer MEDICARE, OTHER ==
[2023-03-13 00:02] LABS: BASOPHILS % (AUTO) 0.7 %; EOSINOPHILS # (AUTO) 0.2 10^3/uL (0.0-0.7); EOSINOPHILS % (AUTO) 3.5 %; HCT - HEMATOCRIT 22.7 % (42.0-52.0); LYMPHOCYTES # (AUTO) 0.8 10^3/uL (1.5-3.5); LYMPHOCYTES % (AUTO) 12.7 %; MEAN CORPUSCULAR HEMOGLOBIN 31.2 pg (27.0-31.0); MEAN CORPUSCULAR HGB CONC 30.4 g/dL (32.0-36.0); MEAN CORPUSCULAR VOLUME 102.7 fL (80.0-94.0); MEAN PLATELET VOLUME 10.5 fL (7.4-11.4); MONOCYTES # (AUTO) 0.5 10^3/uL (0.0-1.0); NEUTROPHILS # (AUTO) 4.5 10^3/uL (1.5-6.6); NEUTROPHILS % (AUTO) 74.4 %; PLT - PLATELET COUNT 140 10^3/uL (130-450); RED BLOOD COUNT 2.21 10^6/uL (4.70-6.10); RED CELL DISTRIBUTION WIDTH 21.6 % (12.0-15.0)
[2023-03-13 00:16] LABS: ALBUMIN 3.1 g/dL (3.2-5.5)
[2023-03-13 00:18] LABS: ALBUMIN/GLOBULIN RATIO 0.8 (1.0-2.2); BILIRUBIN,TOTAL 0.9 mg/dL (0.2-1.0); CALCIUM 9.5 mg/dL (8.5-10.3); HGB - HEMOGLOBIN 6.9 g/dL (14.0-18.0); POTASSIUM 4.8 mmol/L (3.5-4.5); SLIDE REVIEW? Indicated; TOTAL PROTEIN 6.9 g/dL (6.4-8.9)
[2023-03-13 00:30] LABS: PLATELET ESTIMATE, MANUAL NORMAL (130-450,000) (NORMAL)
== END 2023-03-12 23:59 | disposition home or self-care (01) ==
LOC: LAB.R 08:00
PROVIDERS: ATTEND Registered Nurse
DX: A04.72 Enterocolitis due to Clostridium difficile, not specified as recurrent (principal); I50.32 Chronic diastolic (congestive) heart failure; N18.6 End stage renal disease; L97.516 Non-pressure chronic ulcer of other part of right foot with bone involvement without evidence of necrosis; M86.171 Other acute osteomyelitis, right ankle and foot
CPT/HCPCS: 80053; 85025; 87493

== ENCOUNTER 2023-03-13 01:11 | Outpatient (CLI) | payer MEDICARE, OTHER | END 2023-03-13 01:12 | disposition critical access hospital (66) | LOC: EMS 01:11 | DX: R79.89 Other specified abnormal findings of blood chemistry (principal) | CPT/HCPCS: A0425; A0429 ==

== ENCOUNTER 2023-03-13 01:22 | Emergency (ER) | payer MEDICARE, OTHER ==
[2023-03-13 01:45] LABS: BASOPHILS % (AUTO) 0.7 %; EOSINOPHILS # (AUTO) 0.2 10^3/uL (0.0-0.7); EOSINOPHILS % (AUTO) 3.5 %; LYMPHOCYTES # (AUTO) 0.8 10^3/uL (1.5-3.5); LYMPHOCYTES % (AUTO) 13.3 %; MEAN CORPUSCULAR HEMOGLOBIN 31.5 pg (27.0-31.0); MEAN CORPUSCULAR HGB CONC 30.4 g/dL (32.0-36.0); MEAN CORPUSCULAR VOLUME 103.6 fL (80.0-94.0); MEAN PLATELET VOLUME 10.3 fL (7.4-11.4); MONOCYTES # (AUTO) 0.5 10^3/uL (0.0-1.0); MONOCYTES % (AUTO) 8.9 %; NEUTROPHILS # (AUTO) 4.4 10^3/uL (1.5-6.6); NEUTROPHILS % (AUTO) 72.9 %; PLT - PLATELET COUNT 138 10^3/uL (130-450); RED BLOOD COUNT 2.22 10^6/uL (4.70-6.10); RED CELL DISTRIBUTION WIDTH 21.7 % (12.0-15.0); WHITE BLOOD COUNT 6.1 x10^3/uL (4.8-10.8)
[2023-03-13 01:54] LABS: SLIDE REVIEW? Indicated
[2023-03-13 02:07] LABS: ALBUMIN 3.2 g/dL (3.2-5.5)
[2023-03-13 02:08] LABS: ALBUMIN/GLOBULIN RATIO 0.8 (1.0-2.2); BILIRUBIN,TOTAL 0.9 mg/dL (0.2-1.0); CALCIUM 9.6 mg/dL (8.5-10.3); CREATININE 7.1 mg/dL (0.6-1.3); POTASSIUM 4.9 mmol/L (3.5-4.5)
[2023-03-13 02:49] LABS: PLATELET ESTIMATE, MANUAL NORMAL (130-450,000) (NORMAL)
--- NOTE | 2023-03-13 03:41 | ED Physician Documentation ---
History of Present Illness - Stated complaint Stated Complaint: BLOOD TRANSFUSION - Chief complaint Chief Complaint: General - History obtained from History obtained from: Patient - Additonal information Additional information: BIBA from [facility] for anemia, hgb 6.9 noted on outpatient draw this evening. Also creatinine 7 but patient is a TIW HD patient. Next dialysis is tomorrow. PD PAST MEDICAL HISTORY - Past Medical History Past Medical History: Yes Cardiovascular: Congestive heart failure, Hypertension, High cholesterol, [place] Respiratory: Pneumonia Endocrine/Autoimmune: Type 2 diabetes GI: None : Benign prostate hypertrophy, Dialysis, Renal insuffiency HEENT: None Psych: None Musculoskeletal: None Derm: Other Other Past Medical History: bacteremia, oxygen dependent, endocarditis, dialysis, glaucoma, osteomyelitis, venous insuffiency - Past Surgical History Past Surgical History: Yes General: Appendectomy HEENT: Cataracts - Present Medications Home Medications: Ambulatory Orders Medication Instructions Recorded Confirmed Bisacodyl Supp [Dulcolax Supp] 10 mg CA ONCE 03/13/23 03/13/23 Calcium Carbonate [Tums (Calcium 1,000 mg PO QDAC 03/13/23 03/13/23 Carbonate 500mg)] Clopidogrel Bisulfate [Plavix] 75 mg PO DAILY 03/13/23 03/13/23 Dorzolamide 2% Ophth Drops 1 drops BID 03/13/23 03/13/23 [Trusopt 2% Ophth Drops] Finasteride [Proscar] 5 mg PO DAILY 03/13/23 03/13/23 Furosemide [Lasix] 160 mg PO DAILY 03/13/23 03/13/23 Lactobacillus Combination No.4 1 each PO 03/13/23 [Probiotic] Losartan Potassium 100 mg PO DAILY 03/13/23 03/13/23 Naloxone HCl Nasal [Narcan Nasal] 4 mg NS 03/13/23 Pantoprazole [Protonix] 40 mg PO QDAC 03/13/23 03/13/23 No122/Iron/Folic Acid 1 each PO DAILY 03/13/23 03/13/23 [ Multi Tablet] Senna [Senokot] 8.6 mg PO DAILY 03/13/23 03/13/23 Simvastatin [Zocor] 10 mg ORAL DAILY 03/13/23 03/13/23 Tamsulosin [Flomax] 0.4 mg PO BID 03/13/23 03/13/23 Timolol 0.5% Ophth Drops [Timoptic 03/13/23 0.5% Ophth Drops] carvediloL [Coreg] 3.125 mg PO BID 03/13/23 03/13/23 hydrOXYzine PAMOATE [Vistaril] 25 mg PO ONCE 03/13/23 03/13/23 oxyCODONE [Roxicodone] 5 mg PO Q8HR PRN 03/13/23 03/13/23 polyethylene glycoL 3350 [Miralax] 17 gm PO DAILY 03/13/23 03/13/23 - Allergies Allergies/Adverse Reactions: Allergies Allergy/AdvReac Type Severity Reaction Status Date / Time No Known Drug Allergies Allergy Verified 03/13/23 01:32 - Social History Does the pt smoke?: No Smoking Status: Never smoker Does the pt drink ETOH?: No Does the pt have substance abuse?: No - Immunizations Immunizations are current?: Yes - POLST Patient has POLST: No PD ED PE NORMAL - Vitals Vital signs reviewed: Yes - General General: Alert and oriented X 3, No acute distress, Well developed/nourished - Cardiac Cardiac: RRR - Respiratory Respiratory: No respiratory distress, Clear bilaterally - Abdomen Abdomen: Soft, Non tender Results - Vitals Vitals: Oxygen O2 Source Room air - Labs Labs: Laboratory Tests 03/13/23 03/13/23 03/13/23 01:37 01:37 01:37 WBC 6.1 RBC 2.22 L Hgb 7.0 L* Hct 23.0 L MCV 103.6 H MCH 31.5 H MCHC 30.4 L RDW 21.7 H Plt Count 138 MPV 10.3 Neut # (Auto) 4.4 Lymph # (Auto) 0.8 L [place] # (Auto) 0.5 Eos # (Auto) 0.2 Baso # (Auto) 0.0 Absolute Nucleated RBC 0.00 Nucleated RBC % 0.0 Manual Slide Review Indicated Platelet Estimate NORMAL (130-450,000) RBC Morph Micro Appear 1+ OVALOCYTES Sodium 138 Potassium 4.9 H Chloride 99 L Carbon Dioxide 28 Anion Gap 11.0 BUN 54 H Creatinine 7.1 H* Estimated GFR (MDRD) 8 L Glucose 129 H Calcium 9.6 Total Bilirubin 0.9 AST 26 ALT 6 L Alkaline Phosphatase 103 Total Protein 7.0 Albumin 3.2 Globulin 3.8 Albumin/Globulin Ratio 0.8 L Lipase 15 Blood Type O NEGATIVE Antibody Screen POSITIVE Antibody Identification Anti-D JUSTO, IgG Specific NEGATIVE JUSTO, Polyspecific NEGATIVE JUSTO, C3d Specific NEGATIVE 03/13/23 06:33 WBC RBC Hgb 7.3 L Hct 24.1 L MCV MCH MCHC RDW Plt Count MPV Neut # (Auto) Lymph # (Auto) [place] # (Auto) Eos # (Auto) Baso # (Auto) Absolute Nucleated RBC Nucleated RBC % Manual Slide Review Platelet Estimate RBC Morph Micro Appear Sodium Potassium Chloride Carbon Dioxide Anion Gap BUN Creatinine Estimated GFR (MDRD) Glucose Calcium Total Bilirubin AST ALT Alkaline Phosphatase Total Protein Albumin Globulin Albumin/Globulin Ratio Lipase Blood Type Antibody Screen Antibody Identification JUSTO, IgG Specific JUSTO, Polyspecific JUSTO, C3d Specific PD Medical Decision Making - ED course Complexity details: considered differential, d/w patient ED course: Patient is due for HD later today (03/13/23), and thus the creatinine is not unexpected. Similarly, mild hyperkalemia noted 4.8 on our lab draw, 4.9 on repeat prior to discharge. This can be addressed when he is dialyzed later today at HD. He was sent in for hgb 6.9. Our repeat is 7.0 and he does not have any signs/symptoms attributable to anemia (such as acute dyspnea, lightheadedness). He is type and screened and several hours later, lab called to inform us that, due to multiple antibodies, it would take at least another 8 hours to completely cross-match for blood and obtain the appropriate PRBC. A second h/h (third of the evening, counting the outpatient lab) was undertaken late in his ED stay, and hgb is 7.3. I do not think patient needs to be held in ED for another (minimum) 8 hours to receive PRBC transfusions with asymptomatic anemia with up- trending h/h. Transferring to another facility also seems unnecessary, as HD takes precedence at this time; if it is felt he still needs PRBC transfusion after receiving HD, can be considered for transfer, ideally to a facility with a larger blood bank pool from which to choose appropriate cross-matched PRBC. Departure - Departure Disposition: 01 Home, Self Care Clinical Impression: Anemia Condition: Good Instructions: ED Anemia Type Not Specified Comments: Your red blood cell levels were low on today's tests, repeat tests of the red blood cell level showed mild improvement without specific intervention (such as transfusion). Should you need transfusion (red blood cells), the lab has informed us that it would likely take eight or more hours just to find appropriately-matched blood for you (due to formation of antibodies, which is not uncommon over time with recurrent transfusions). Follow up with your doctor for reevaluation of your red blood cell levels. Forms: PCP List Discharge Date/Time: 03/13/23 10:31
[2023-03-13 06:43] LABS: HCT - HEMATOCRIT 24.1 % (42.0-52.0); HGB - HEMOGLOBIN 7.3 g/dL (14.0-18.0)
[2023-03-13 11:03] VITALS: BP 112/48; O2SAT 94
== END 2023-03-13 10:31 | disposition home or self-care (01) ==
LOC: EDUNIT# → ED 01:22
DX: D64.9 Anemia, unspecified (principal); I13.2 Hypertensive heart and chronic kidney disease with heart failure and with stage 5 chronic kidney disease, or end stage renal disease; E11.22 Type 2 diabetes mellitus with diabetic chronic kidney disease; N18.6 End stage renal disease; I50.9 Heart failure, unspecified; Z99.2 Dependence on renal dialysis
CPT/HCPCS: 36415; 80053; 81599; 83690; 85014; 85018; 85025; 86850; 86870; 86880; 86900; 86901; 99284

== ENCOUNTER 2023-03-14 12:20 | Outpatient (CLI) | payer MEDICARE, OTHER ==
[2023-03-14 12:39] LABS: BASOPHILS # (AUTO) 0.1 10^3/uL (0.0-0.1); EOSINOPHILS # (AUTO) 0.3 10^3/uL (0.0-0.7); EOSINOPHILS % (AUTO) 4.8 %; HCT - HEMATOCRIT 24.5 % (42.0-52.0); HGB - HEMOGLOBIN 7.3 g/dL (14.0-18.0); LYMPHOCYTES # (AUTO) 0.7 10^3/uL (1.5-3.5); LYMPHOCYTES % (AUTO) 11.4 %; MEAN CORPUSCULAR HEMOGLOBIN 31.3 pg (27.0-31.0); MEAN CORPUSCULAR HGB CONC 29.8 g/dL (32.0-36.0); MEAN CORPUSCULAR VOLUME 105.2 fL (80.0-94.0); MEAN PLATELET VOLUME 10.8 fL (7.4-11.4); MONOCYTES # (AUTO) 0.5 10^3/uL (0.0-1.0); MONOCYTES % (AUTO) 8.8 %; NEUTROPHILS # (AUTO) 4.3 10^3/uL (1.5-6.6); NEUTROPHILS % (AUTO) 73.5 %; PLT - PLATELET COUNT 158 10^3/uL (130-450); RED BLOOD COUNT 2.33 10^6/uL (4.70-6.10); RED CELL DISTRIBUTION WIDTH 22.8 % (12.0-15.0); WHITE BLOOD COUNT 5.8 x10^3/uL (4.8-10.8)
== END 2023-03-14 12:21 | disposition home or self-care (01) ==
LOC: LAB 12:20 → LAB.R 12:21
PROVIDERS: ATTEND Registered Nurse
DX: I12.0 Hypertensive chronic kidney disease with stage 5 chronic kidney disease or end stage renal disease (principal); N18.6 End stage renal disease; Z99.2 Dependence on renal dialysis
CPT/HCPCS: 85025

== ENCOUNTER 2023-03-16 08:00 | Outpatient (CLI) | payer MEDICARE, OTHER ==
[2023-03-16 14:22] LABS: BASOPHILS # (AUTO) 0.1 10^3/uL (0.0-0.1); BASOPHILS % (AUTO) 1.1 %; EOSINOPHILS # (AUTO) 0.3 10^3/uL (0.0-0.7); LYMPHOCYTES # (AUTO) 0.6 10^3/uL (1.5-3.5); MEAN CORPUSCULAR HEMOGLOBIN 32.1 pg (27.0-31.0); MEAN CORPUSCULAR HGB CONC 29.6 g/dL (32.0-36.0); MEAN CORPUSCULAR VOLUME 108.5 fL (80.0-94.0); MEAN PLATELET VOLUME 10.8 fL (7.4-11.4); MONOCYTES # (AUTO) 0.5 10^3/uL (0.0-1.0); MONOCYTES % (AUTO) 10.5 %; NEUTROPHILS # (AUTO) 3.1 10^3/uL (1.5-6.6); NEUTROPHILS % (AUTO) 66.5 %; NRBC ABSOLUTE COUNT (AUTO) 0.02 x10^3/uL; NUCLEATED RED BLOOD CELLS AUTO 0.4 /100WBC; PLT - PLATELET COUNT 178 10^3/uL (130-450); RED BLOOD COUNT 2.12 10^6/uL (4.70-6.10); RED CELL DISTRIBUTION WIDTH 23.9 % (12.0-15.0); WHITE BLOOD COUNT 4.6 x10^3/uL (4.8-10.8)
[2023-03-16 14:25] LABS: HGB - HEMOGLOBIN 6.8 g/dL (14.0-18.0)
== END 2023-03-16 23:58 | disposition home or self-care (01) ==
LOC: LAB.R 08:00
PROVIDERS: ATTEND Registered Nurse
DX: R78.81 Bacteremia (principal)
CPT/HCPCS: 85025

== ENCOUNTER 2023-03-24 08:00 | Outpatient (CLI) | payer MEDICARE, OTHER ==
[2023-03-24 19:51] LABS: BASOPHILS % (AUTO) 0.9 %; EOSINOPHILS # (AUTO) 0.5 10^3/uL (0.0-0.7); HGB - HEMOGLOBIN 7.3 g/dL (14.0-18.0); LYMPHOCYTES # (AUTO) 0.5 10^3/uL (1.5-3.5); LYMPHOCYTES % (AUTO) 10.7 %; MEAN CORPUSCULAR HEMOGLOBIN 31.7 pg (27.0-31.0); MEAN CORPUSCULAR HGB CONC 29.2 g/dL (32.0-36.0); MEAN CORPUSCULAR VOLUME 108.7 fL (80.0-94.0); MEAN PLATELET VOLUME 10.5 fL (7.4-11.4); MONOCYTES # (AUTO) 0.3 10^3/uL (0.0-1.0); MONOCYTES % (AUTO) 7.4 %; NEUTROPHILS # (AUTO) 3.2 10^3/uL (1.5-6.6); NEUTROPHILS % (AUTO) 70.8 %; PLT - PLATELET COUNT 162 10^3/uL (130-450); RED CELL DISTRIBUTION WIDTH 19.9 % (12.0-15.0); WHITE BLOOD COUNT 4.6 x10^3/uL (4.8-10.8)
== END 2023-03-24 23:59 | disposition home or self-care (01) ==
LOC: LAB.R 08:00
PROVIDERS: ATTEND Registered Nurse
DX: N18.6 End stage renal disease (principal); I33.0 Acute and subacute infective endocarditis
CPT/HCPCS: 85025

== ENCOUNTER 2023-03-26 13:39 | Outpatient (CLI) | payer MEDICARE, OTHER ==
[2023-03-26 13:49] LABS: BASOPHILS % (AUTO) 0.9 %; EOSINOPHILS # (AUTO) 0.3 10^3/uL (0.0-0.7); HCT - HEMATOCRIT 23.8 % (42.0-52.0); LYMPHOCYTES # (AUTO) 0.5 10^3/uL (1.5-3.5); LYMPHOCYTES % (AUTO) 10.9 %; MEAN CORPUSCULAR HEMOGLOBIN 32.1 pg (27.0-31.0); MEAN CORPUSCULAR HGB CONC 29.4 g/dL (32.0-36.0); MEAN CORPUSCULAR VOLUME 109.2 fL (80.0-94.0); MEAN PLATELET VOLUME 10.3 fL (7.4-11.4); MONOCYTES # (AUTO) 0.3 10^3/uL (0.0-1.0); MONOCYTES % (AUTO) 7.8 %; NEUTROPHILS # (AUTO) 3.1 10^3/uL (1.5-6.6); NEUTROPHILS % (AUTO) 72.2 %; PLT - PLATELET COUNT 151 10^3/uL (130-450); RED BLOOD COUNT 2.18 10^6/uL (4.70-6.10); RED CELL DISTRIBUTION WIDTH 19.9 % (12.0-15.0); WHITE BLOOD COUNT 4.2 x10^3/uL (4.8-10.8)
[2023-03-26 14:04] LABS: ALBUMIN 3.4 g/dL (3.2-5.5)
[2023-03-26 14:10] LABS: ALT ALANINE AMINOTRANSFERASE < 3 IU/L (10-60)
[2023-03-26 17:20] LABS: ALKALINE PHOSPHATASE 147 IU/L (42-121); AST ASPARTATE AMINOTRANSFERASE 14 IU/L (10-42); BILIRUBIN,TOTAL 0.7 mg/dL (0.2-1.0); BUN - BLOOD UREA NITROGEN 31 mg/dL (6-20); CALCIUM 9.3 mg/dL (8.5-10.3); CARBON DIOXIDE - CO2 34 mmol/L (21-32); CHLORIDE 96 mmol/L (101-111); CREATININE 5.5 mg/dL (0.6-1.3); GFR - MDRD 10 (>89); GLUCOSE 145 mg/dL (74-104); POTASSIUM 4.3 mmol/L (3.5-4.5); SODIUM 138 mmol/L (135-145); TOTAL PROTEIN 6.8 g/dL (6.4-8.9)
== END 2023-03-26 13:40 | disposition home or self-care (01) ==
LOC: LAB.R 13:39
PROVIDERS: ATTEND Registered Nurse
DX: I12.0 Hypertensive chronic kidney disease with stage 5 chronic kidney disease or end stage renal disease (principal); N18.6 End stage renal disease; J96.21 Acute and chronic respiratory failure with hypoxia
CPT/HCPCS: 80053; 85025

== ENCOUNTER 2023-04-06 08:00 | Outpatient (CLI) | payer MEDICARE, OTHER | END 2023-04-06 23:59 | disposition home or self-care (01) | LOC: LAB.R 08:00 | DX: Z01.89 Encounter for other specified special examinations (principal); B95.61 Methicillin susceptible Staphylococcus aureus infection as the cause of diseases classified elsewhere | CPT/HCPCS: 87493 ==

== ENCOUNTER 2023-04-14 16:50 | Outpatient (CLI) | payer MEDICARE, OTHER | END 2023-04-14 23:59 | disposition critical access hospital (66) | LOC: EMS 16:50 | DX: D64.9 Anemia, unspecified (principal); Z79.02 Long term (current) use of antithrombotics/antiplatelets | CPT/HCPCS: A0425; A0429 ==

== ENCOUNTER 2023-04-14 16:58 | Emergency (ER) | payer MEDICARE, OTHER ==
--- NOTE | 2023-04-14 19:05 | ED Physician Documentation ---
History of Present Illness - Stated complaint Stated Complaint: ABNORMAL LABS - Chief complaint Chief Complaint: General - History obtained from History obtained from: Patient, EMS - Additonal information Additional information: Patient comes to the emergency department via EMS for chief complaint of "my hemoglobin is 6.9". Patient has a history of end-stage renal disease on hemodialysis and has chronic kidney disease related anemia. He takes erythropoietin and "a couple of other medicines" for this, and he states, and gets his hemoglobin checked every 2 to 4 weeks. The patient states that he did not have any symptoms whatsoever and simply was getting a routine check done, when his hemoglobin was found to be 6.9. The staff at [facility] called his doctor and decided to have him sent in. The patient denies any shortness of breath, chest pain, lightheadedness, or generalized weakness. He denies any new source of bleeding. No other complaints at this time. PD PAST MEDICAL HISTORY - Past Medical History Cardiovascular: Congestive heart failure, Hypertension, High cholesterol, [place] Respiratory: Pneumonia Endocrine/Autoimmune: Type 2 diabetes GI: None : Benign prostate hypertrophy, Dialysis, Renal insuffiency HEENT: None Psych: None Musculoskeletal: None Derm: Other - Past Surgical History Past Surgical History: Yes General: Appendectomy HEENT: Cataracts - Present Medications Home Medications: Ambulatory Orders Medication Instructions Recorded Confirmed Bisacodyl Supp [Dulcolax Supp] 10 mg PA ONCE 03/13/23 03/13/23 Calcium Carbonate [Tums (Calcium 1,000 mg PO QDAC 03/13/23 03/13/23 Carbonate 500mg)] Clopidogrel Bisulfate [Plavix] 75 mg PO DAILY 03/13/23 03/13/23 Dorzolamide 2% Ophth Drops 1 drops BID 03/13/23 03/13/23 [Trusopt 2% Ophth Drops] Finasteride [Proscar] 5 mg PO DAILY 03/13/23 03/13/23 Furosemide [Lasix] 160 mg PO DAILY 03/13/23 03/13/23 Lactobacillus Combination No.4 1 each PO 03/13/23 [Probiotic] Losartan Potassium 100 mg PO DAILY 03/13/23 03/13/23 Naloxone HCl Nasal [Narcan Nasal] 4 mg NS 03/13/23 Pantoprazole [Protonix] 40 mg PO QDAC 03/13/23 03/13/23 No122/Iron/Folic Acid 1 each PO DAILY 03/13/23 03/13/23 [ Multi Tablet] Senna [Senokot] 8.6 mg PO DAILY 03/13/23 03/13/23 Simvastatin [Zocor] 10 mg ORAL DAILY 03/13/23 03/13/23 Tamsulosin [Flomax] 0.4 mg PO BID 03/13/23 03/13/23 Timolol 0.5% Ophth Drops [Timoptic 03/13/23 0.5% Ophth Drops] carvediloL [Coreg] 3.125 mg PO BID 03/13/23 03/13/23 hydrOXYzine PAMOATE [Vistaril] 25 mg PO ONCE 03/13/23 03/13/23 oxyCODONE [Roxicodone] 5 mg PO Q8HR PRN 03/13/23 03/13/23 polyethylene glycoL 3350 [Miralax] 17 gm PO DAILY 03/13/23 03/13/23 - Allergies Allergies/Adverse Reactions: Allergies Allergy/AdvReac Type Severity Reaction Status Date / Time No Known Drug Allergies Allergy Verified 03/13/23 01:32 - Social History Does the pt smoke?: No Smoking Status: Never smoker Does the pt drink ETOH?: No Does the pt have substance abuse?: No - Immunizations Immunizations are current?: Yes - POLST Patient has POLST: No PD ED PE NORMAL - Vitals Vital signs reviewed: Yes - General General: Alert and oriented X 3, No acute distress, Well developed/nourished - HEENT HEENT: Atraumatic, PERRL, EOMI, Moist mucous membranes - Neck Neck: Supple, no meningeal sign - Cardiac Cardiac: RRR, No murmur - Respiratory Respiratory: No respiratory distress, Clear bilaterally - Abdomen Abdomen: Soft, Non tender, Non distended - Derm Derm: Normal color, Warm and dry, No rash - Extremities Extremities: No deformity, No edema - Neuro Neuro: Alert and oriented X 3 - Psych Psych: Normal mood, Normal affect Results - Vitals Vitals: Vital Signs - 24 hr 04/14/23 04/14/23 17:06 18:23 Temperature 36 C L Heart Rate 62 57 L Respiratory 20 25 H Rate Blood Pressure 129/45 L 157/64 H O2 Saturation 90 L 94 If not protocol 5 : Oxygen Flow, liters/minute Oxygen O2 Source Nasal cannula - Labs Labs: Laboratory Tests 04/14/23 17:40 Blood Type O NEGATIVE Antibody Screen POSITIVE Crossmatch See Detail PD Medical Decision Making - ED course Complexity details: reviewed old records, reviewed results, re-evaluated patient, considered differential, d/w patient ED course: I did review the patient's records and found that the patient's hemoglobin had been 6.9 earlier today. On review of the patient's serial hemoglobins from recent months, however, I did find that the patient's baseline hemoglobin is right around the upper sixes to low sevens, and the patient was more or less at baseline. I had ordered a type and cross and a single unit to be transfused, since the patient is on the slightly lower end of his usual range and technically within transfusion range. The patient is awaiting his transfusion now. I have signed him out to my oncoming colleague at change of shift, pending this, and with the anticipation that the patient will be able to be discharged home after the transfusion. Departure - Departure Clinical Impression: Anemia Qualifiers: Anemia type: due to chronic kidney disease Chronic kidney disease stage: on chronic dialysis Qualified Code(s): N18.6 - End stage renal disease Condition: Stable Instructions: Anemia and Kidney Disease Comments: Your hemoglobin is actually about at baseline for you. Your most recent levels over the last couple of months have all been in the upper sixes to low sevens. You been given a unit of blood tonight and as you do not have any symptoms associated with your anemia, there is no indication for further units of blood or further hemoglobin checks in the emergency department. You may follow-up with your primary doctor to have your hemoglobin rechecked as you normally would. Please also plan to go to dialysis as usual, on your normal schedule. Forms: PCP List
[2023-04-14 22:06] VITALS: O2SAT 95
[2023-04-14 23:33] VITALS: BP 160/109
== END 2023-04-14 23:31 | disposition home or self-care (01) ==
LOC: ED 16:58
DX: N18.6 End stage renal disease (principal); D63.1 Anemia in chronic kidney disease
CPT/HCPCS: 36415; 36430; 85025; 86850; 86870; 86880; 86900; 86901; 86922; 99283; 99285; P9016

== ENCOUNTER 2023-04-14 23:41 | Outpatient (CLI) | payer MEDICARE, OTHER | END 2023-04-14 23:59 | LOC: EMS 23:41 | PROVIDERS: ATTEND Emergency Medicine | DX: D64.9 Anemia, unspecified (principal); Z99.81 Dependence on supplemental oxygen | CPT/HCPCS: A0425; A0428 ==

== ENCOUNTER 2023-04-16 08:00 | Outpatient (CLI) | payer MEDICARE, OTHER ==
[2023-04-16 22:27] LABS: BASOPHILS % (AUTO) 0.4 %; EOSINOPHILS # (AUTO) 0.6 10^3/uL (0.0-0.7); EOSINOPHILS % (AUTO) 12.5 %; HCT - HEMATOCRIT 26.3 % (42.0-52.0); HGB - HEMOGLOBIN 7.9 g/dL (14.0-18.0); LYMPHOCYTES # (AUTO) 0.1 10^3/uL (1.5-3.5); LYMPHOCYTES % (AUTO) 2.7 %; MEAN CORPUSCULAR VOLUME 106.5 fL (80.0-94.0); MONOCYTES # (AUTO) 0.3 10^3/uL (0.0-1.0); MONOCYTES % (AUTO) 5.2 %; NEUTROPHILS # (AUTO) 3.8 10^3/uL (1.5-6.6); PLT - PLATELET COUNT 115 10^3/uL (130-450); RED BLOOD COUNT 2.47 10^6/uL (4.70-6.10); RED CELL DISTRIBUTION WIDTH 18.5 % (12.0-15.0); WHITE BLOOD COUNT 4.8 x10^3/uL (4.8-10.8)
[2023-04-16 22:37] LABS: ALBUMIN 3.7 g/dL (3.2-5.5); ALBUMIN/GLOBULIN RATIO 1.2 (1.0-2.2); ALKALINE PHOSPHATASE 198 IU/L (42-121); ALT ALANINE AMINOTRANSFERASE < 3 IU/L (10-60); AST ASPARTATE AMINOTRANSFERASE 14 IU/L (10-42); BILIRUBIN,TOTAL 0.7 mg/dL (0.2-1.0); BUN - BLOOD UREA NITROGEN 33 mg/dL (6-20); CALCIUM 9.2 mg/dL (8.5-10.3); CARBON DIOXIDE - CO2 30 mmol/L (21-32); CHLORIDE 97 mmol/L (101-111); CREATININE 5.6 mg/dL (0.6-1.3); GFR - MDRD 10 (>89); GLUCOSE 117 mg/dL (74-104); POTASSIUM 4.9 mmol/L (3.5-4.5); SODIUM 137 mmol/L (135-145); TOTAL PROTEIN 6.8 g/dL (6.4-8.9)
== END 2023-04-16 23:59 | disposition home or self-care (01) ==
LOC: LAB.R 08:00
PROVIDERS: ATTEND Registered Nurse
DX: N18.6 End stage renal disease (principal)
CPT/HCPCS: 80053; 85025

== ENCOUNTER 2023-04-18 07:50 | Outpatient (CLI) | payer MEDICARE, OTHER ==
[2023-04-18 08:01] LABS: BASOPHILS % (AUTO) 0.3 %; EOSINOPHILS # (AUTO) 0.6 10^3/uL (0.0-0.7); EOSINOPHILS % (AUTO) 17.1 %; HCT - HEMATOCRIT 25.4 % (42.0-52.0); HGB - HEMOGLOBIN 7.6 g/dL (14.0-18.0); LYMPHOCYTES # (AUTO) 0.5 10^3/uL (1.5-3.5); LYMPHOCYTES % (AUTO) 13.9 %; MEAN CORPUSCULAR HEMOGLOBIN 32.1 pg (27.0-31.0); MEAN CORPUSCULAR HGB CONC 29.9 g/dL (32.0-36.0); MEAN CORPUSCULAR VOLUME 107.2 fL (80.0-94.0); MEAN PLATELET VOLUME 10.4 fL (7.4-11.4); MONOCYTES # (AUTO) 0.3 10^3/uL (0.0-1.0); MONOCYTES % (AUTO) 8.8 %; NEUTROPHILS % (AUTO) 59.6 %; PLT - PLATELET COUNT 107 10^3/uL (130-450); RED BLOOD COUNT 2.37 10^6/uL (4.70-6.10); RED CELL DISTRIBUTION WIDTH 18.1 % (12.0-15.0); WHITE BLOOD COUNT 3.4 x10^3/uL (4.8-10.8)
== END 2023-04-18 07:51 | disposition home or self-care (01) ==
LOC: LAB.R 07:50
PROVIDERS: ATTEND Registered Nurse
DX: J96.21 Acute and chronic respiratory failure with hypoxia (principal)
CPT/HCPCS: 85025

== ENCOUNTER 2023-04-22 08:00 | Outpatient (CLI) | payer MEDICARE, OTHER ==
[2023-04-22 19:02] LABS: BASOPHILS % (AUTO) 0.8 %; EOSINOPHILS # (AUTO) 0.5 10^3/uL (0.0-0.7); EOSINOPHILS % (AUTO) 12.3 %; HCT - HEMATOCRIT 25.3 % (42.0-52.0); HGB - HEMOGLOBIN 7.5 g/dL (14.0-18.0); LYMPHOCYTES # (AUTO) 0.6 10^3/uL (1.5-3.5); LYMPHOCYTES % (AUTO) 15.3 %; MEAN CORPUSCULAR HEMOGLOBIN 31.6 pg (27.0-31.0); MEAN CORPUSCULAR HGB CONC 29.6 g/dL (32.0-36.0); MEAN CORPUSCULAR VOLUME 106.8 fL (80.0-94.0); MEAN PLATELET VOLUME 10.2 fL (7.4-11.4); MONOCYTES # (AUTO) 0.4 10^3/uL (0.0-1.0); MONOCYTES % (AUTO) 9.9 %; NEUTROPHILS # (AUTO) 2.3 10^3/uL (1.5-6.6); NEUTROPHILS % (AUTO) 61.4 %; PLT - PLATELET COUNT 109 10^3/uL (130-450); RED BLOOD COUNT 2.37 10^6/uL (4.70-6.10); RED CELL DISTRIBUTION WIDTH 17.2 % (12.0-15.0); WHITE BLOOD COUNT 3.7 x10^3/uL (4.8-10.8)
== END 2023-04-22 23:59 | disposition home or self-care (01) ==
LOC: LAB.R 08:00
PROVIDERS: ATTEND Registered Nurse
DX: N18.6 End stage renal disease (principal)
CPT/HCPCS: 85025

== ENCOUNTER 2023-05-02 08:00 | Outpatient (CLI) | payer MEDICARE, OTHER ==
[2023-05-02 19:48] LABS: BASOPHILS % (AUTO) 0.5 %; EOSINOPHILS # (AUTO) 0.6 10^3/uL (0.0-0.7); EOSINOPHILS % (AUTO) 13.8 %; HCT - HEMATOCRIT 24.4 % (42.0-52.0); HGB - HEMOGLOBIN 7.2 g/dL (14.0-18.0); LYMPHOCYTES # (AUTO) 0.5 10^3/uL (1.5-3.5); LYMPHOCYTES % (AUTO) 11.1 %; MEAN CORPUSCULAR HEMOGLOBIN 31.2 pg (27.0-31.0); MEAN CORPUSCULAR HGB CONC 29.5 g/dL (32.0-36.0); MEAN CORPUSCULAR VOLUME 105.6 fL (80.0-94.0); MONOCYTES # (AUTO) 0.3 10^3/uL (0.0-1.0); MONOCYTES % (AUTO) 7.9 %; NEUTROPHILS # (AUTO) 2.7 10^3/uL (1.5-6.6); NEUTROPHILS % (AUTO) 66.5 %; PLT - PLATELET COUNT 103 10^3/uL (130-450); RED BLOOD COUNT 2.31 10^6/uL (4.70-6.10); RED CELL DISTRIBUTION WIDTH 17.1 % (12.0-15.0); WHITE BLOOD COUNT 4.1 x10^3/uL (4.8-10.8)
== END 2023-05-02 23:59 | disposition home or self-care (01) ==
LOC: LAB 08:00
PROVIDERS: ATTEND Registered Nurse
DX: M86.171 Other acute osteomyelitis, right ankle and foot (principal)
CPT/HCPCS: 36415; 85025

== ENCOUNTER 2023-05-06 07:34 | Outpatient (CLI) | payer MEDICARE, OTHER ==
[2023-05-06 07:44] LABS: BASOPHILS % (AUTO) 0.6 %; EOSINOPHILS # (AUTO) 0.5 10^3/uL (0.0-0.7); EOSINOPHILS % (AUTO) 15.7 %; HCT - HEMATOCRIT 23.3 % (42.0-52.0); HGB - HEMOGLOBIN 7.1 g/dL (14.0-18.0); LYMPHOCYTES # (AUTO) 0.5 10^3/uL (1.5-3.5); LYMPHOCYTES % (AUTO) 13.3 %; MEAN CORPUSCULAR HEMOGLOBIN 31.7 pg (27.0-31.0); MEAN CORPUSCULAR HGB CONC 30.5 g/dL (32.0-36.0); MEAN PLATELET VOLUME 10.1 fL (7.4-11.4); MONOCYTES # (AUTO) 0.3 10^3/uL (0.0-1.0); MONOCYTES % (AUTO) 9.9 %; NEUTROPHILS # (AUTO) 2.1 10^3/uL (1.5-6.6); NEUTROPHILS % (AUTO) 60.2 %; PLT - PLATELET COUNT 103 10^3/uL (130-450); RED BLOOD COUNT 2.24 10^6/uL (4.70-6.10); RED CELL DISTRIBUTION WIDTH 16.9 % (12.0-15.0); WHITE BLOOD COUNT 3.5 x10^3/uL (4.8-10.8)
== END 2023-05-06 07:35 | disposition home or self-care (01) ==
LOC: LAB.R 07:34
PROVIDERS: ATTEND Registered Nurse
DX: I33.0 Acute and subacute infective endocarditis (principal)
CPT/HCPCS: 85025

== ENCOUNTER 2023-05-07 08:00 | Outpatient (CLI) | payer MEDICARE, OTHER ==
[2023-05-07 21:56] LABS: BASOPHILS % (AUTO) 0.6 %; EOSINOPHILS # (AUTO) 0.5 10^3/uL (0.0-0.7); EOSINOPHILS % (AUTO) 13.5 %; HCT - HEMATOCRIT 23.1 % (42.0-52.0); LYMPHOCYTES # (AUTO) 0.4 10^3/uL (1.5-3.5); LYMPHOCYTES % (AUTO) 12.3 %; MEAN CORPUSCULAR HEMOGLOBIN 31.3 pg (27.0-31.0); MEAN CORPUSCULAR HGB CONC 30.3 g/dL (32.0-36.0); MEAN CORPUSCULAR VOLUME 103.1 fL (80.0-94.0); MEAN PLATELET VOLUME 10.3 fL (7.4-11.4); MONOCYTES # (AUTO) 0.3 10^3/uL (0.0-1.0); MONOCYTES % (AUTO) 8.7 %; NEUTROPHILS # (AUTO) 2.2 10^3/uL (1.5-6.6); NEUTROPHILS % (AUTO) 64.6 %; PLT - PLATELET COUNT 114 10^3/uL (130-450); RED BLOOD COUNT 2.24 10^6/uL (4.70-6.10); RED CELL DISTRIBUTION WIDTH 16.8 % (12.0-15.0); WHITE BLOOD COUNT 3.3 x10^3/uL (4.8-10.8)
[2023-05-07 22:14] LABS: ALBUMIN 3.5 g/dL (3.2-5.5); ALBUMIN/GLOBULIN RATIO 1.3 (1.0-2.2); BILIRUBIN,TOTAL 0.6 mg/dL (0.2-1.0); CALCIUM 9.1 mg/dL (8.5-10.3); CREATININE 3.4 mg/dL (0.6-1.3); POTASSIUM 3.5 mmol/L (3.5-4.5); TOTAL PROTEIN 6.3 g/dL (6.4-8.9)
== END 2023-05-07 23:59 | disposition home or self-care (01) ==
LOC: LAB.R 08:00
PROVIDERS: ATTEND Registered Nurse
DX: M86.171 Other acute osteomyelitis, right ankle and foot (principal)
CPT/HCPCS: 36415; 80053; 85025

== ENCOUNTER 2023-05-11 08:00 | Outpatient (CLI) | payer MEDICARE, OTHER ==
[2023-05-11 15:21] LABS: BASOPHILS % (AUTO) 0.5 %; EOSINOPHILS # (AUTO) 0.7 10^3/uL (0.0-0.7); EOSINOPHILS % (AUTO) 15.9 %; HCT - HEMATOCRIT 22.9 % (42.0-52.0); LYMPHOCYTES # (AUTO) 0.5 10^3/uL (1.5-3.5); LYMPHOCYTES % (AUTO) 10.9 %; MEAN CORPUSCULAR HEMOGLOBIN 30.9 pg (27.0-31.0); MEAN CORPUSCULAR HGB CONC 29.7 g/dL (32.0-36.0); MEAN CORPUSCULAR VOLUME 104.1 fL (80.0-94.0); MONOCYTES # (AUTO) 0.4 10^3/uL (0.0-1.0); MONOCYTES % (AUTO) 9.1 %; NEUTROPHILS # (AUTO) 2.8 10^3/uL (1.5-6.6); NEUTROPHILS % (AUTO) 63.4 %; PLT - PLATELET COUNT 111 10^3/uL (130-450); WHITE BLOOD COUNT 4.4 x10^3/uL (4.8-10.8)
[2023-05-11 15:32] LABS: HGB - HEMOGLOBIN 6.8 g/dL (14.0-18.0)
== END 2023-05-11 23:59 | disposition home or self-care (01) ==
LOC: LAB 08:00 → LAB.R 23:59
PROVIDERS: ATTEND Registered Nurse
DX: J96.21 Acute and chronic respiratory failure with hypoxia (principal); Z79.02 Long term (current) use of antithrombotics/antiplatelets
CPT/HCPCS: 36415; 85025

== ENCOUNTER 2023-05-11 16:35 | Emergency (ER) | payer MEDICARE, OTHER ==
--- NOTE | 2023-05-11 16:56 | ED Physician Documentation ---
History of Present Illness - Stated complaint Stated Complaint: ABNORMAL LABS - History obtained from History obtained from: Patient, EMS - Additonal information Additional information: The patient comes to the emergency department chief complaint of "low blood". He had a blood draw today at [facility], and was found to have a hemoglobin of 6.8. The patient was sent here for blood transfusion. The patient has a longstanding history of recurrent, severe anemia, secondary to chronic kidney disease, needing transfusions from time to time. The patient denies any bleeding or any new symptoms. He states he has otherwise been feeling fairly well but just somewhat tired. No blood per rectum or melena. He has a history of end-stage renal disease on hemodialysis and last dialysis was the day before yesterday. He is due for his next dialysis tomorrow morning.No other complaints at this time. PD PAST MEDICAL HISTORY - Past Medical History Cardiovascular: Congestive heart failure, Hypertension, High cholesterol, OR Respiratory: Pneumonia Endocrine/Autoimmune: Type 2 diabetes GI: None : Benign prostate hypertrophy, Dialysis, Renal insuffiency HEENT: None Psych: None Musculoskeletal: None Derm: Other - Past Surgical History Past Surgical History: Yes General: Appendectomy HEENT: Cataracts - Present Medications Home Medications: Ambulatory Orders Medication Instructions Recorded Confirmed Bisacodyl Supp [Dulcolax Supp] 10 mg NM ONCE 03/13/23 03/13/23 Calcium Carbonate [Tums (Calcium 1,000 mg PO QDAC 03/13/23 03/13/23 Carbonate 500mg)] Clopidogrel Bisulfate [Plavix] 75 mg PO DAILY 03/13/23 03/13/23 Dorzolamide 2% Ophth Drops 1 drops BID 03/13/23 03/13/23 [Trusopt 2% Ophth Drops] Finasteride [Proscar] 5 mg PO DAILY 03/13/23 03/13/23 Furosemide [Lasix] 160 mg PO DAILY 03/13/23 03/13/23 Lactobacillus Combination No.4 1 each PO 03/13/23 [Probiotic] Losartan Potassium 100 mg PO DAILY 03/13/23 03/13/23 Naloxone HCl Nasal [Narcan Nasal] 4 mg NS 03/13/23 Pantoprazole [Protonix] 40 mg PO QDAC 03/13/23 03/13/23 No122/Iron/Folic Acid 1 each PO DAILY 03/13/23 03/13/23 [ Multi Tablet] Senna [Senokot] 8.6 mg PO DAILY 03/13/23 03/13/23 Simvastatin [Zocor] 10 mg ORAL DAILY 03/13/23 03/13/23 Tamsulosin [Flomax] 0.4 mg PO BID 03/13/23 03/13/23 Timolol 0.5% Ophth Drops [Timoptic 03/13/23 0.5% Ophth Drops] carvediloL [Coreg] 3.125 mg PO BID 03/13/23 03/13/23 hydrOXYzine PAMOATE [Vistaril] 25 mg PO ONCE 03/13/23 03/13/23 oxyCODONE [Roxicodone] 5 mg PO Q8HR PRN 03/13/23 03/13/23 polyethylene glycoL 3350 [Miralax] 17 gm PO DAILY 03/13/23 03/13/23 - Allergies Allergies/Adverse Reactions: Allergies Allergy/AdvReac Type Severity Reaction Status Date / Time No Known Drug Allergies Allergy Verified 03/13/23 01:32 - Social History Does the pt smoke?: No Smoking Status: Never smoker Does the pt drink ETOH?: No Does the pt have substance abuse?: No - Immunizations Immunizations are current?: Yes - POLST Patient has POLST: No PD ED PE NORMAL - Vitals Vital signs reviewed: Yes - General General: Alert and oriented X 3, No acute distress, Well developed/nourished - HEENT HEENT: Atraumatic, PERRL, EOMI, Moist mucous membranes - Neck Neck: Supple, no meningeal sign - Cardiac Cardiac: RRR, No murmur - Respiratory Respiratory: No respiratory distress, Clear bilaterally - Abdomen Abdomen: Soft, Non tender, Non distended - Derm Derm: Warm and dry, Other (Mild pallor) - Extremities Extremities: No deformity, No edema - Neuro Neuro: Alert and oriented X 3, Other (Grossly intact) - Psych Psych: Normal mood, Normal affect Results - Vitals Vitals: Oxygen O2 Source Room air - Labs Labs: Laboratory Tests 05/11/23 05/11/23 16:58 16:58 Sodium 139 Potassium 3.8 Chloride 97 L Carbon Dioxide 32 Anion Gap 10.0 BUN 50 H Creatinine 6.0 H Estimated GFR (MDRD) 9 L Glucose 131 H Calcium 9.1 Total Bilirubin 0.6 AST 12 ALT 11 Alkaline Phosphatase 176 H Total Protein 6.4 Albumin 3.5 Globulin 2.9 Albumin/Globulin Ratio 1.2 Lipase < 10 L Blood Type O NEGATIVE Antibody Screen POSITIVE Antibody Identification Anti-C JUSTO, IgG Specific NEGATIVE JUSTO, Polyspecific NEGATIVE JUSTO, C3d Specific NEGATIVE Crossmatch See Detail PD Medical Decision Making - ED course Complexity details: reviewed old records, reviewed results, re-evaluated patient, considered differential, d/w patient ED course: I reviewed the patient's labs which were done here at our facility and found that he had had a hemoglobin done just prior to coming in and it showed 6.8. I ordered a type and cross of 1 unit of packed red blood cells with plan to transfuse in the emergency department. The patient was just starting his transfusion around the time of change of shift and as such, he was signed out to Dr. Paul, pending completion of transfusion and final disposition. I anticipate that after the patient's transfusion, he will be stable for discharge home, as he is asymptomatic and needs to go to his dialysis tomorrow, and his anemia is chronic and nearly at baseline. Departure - Departure Disposition: 01 Home, Self Care Clinical Impression: ESRD (end stage renal disease) on dialysis Profound anemia Qualifiers: Anemia type: due to chronic kidney disease Chronic kidney disease stage: on chronic dialysis Qualified Code(s): N18.6 - End stage renal disease Condition: Stable Instructions: ED Anemia Type Not Specified, ED Renal Failure Chronic Comments: As discussed, because of your frequent transfusions, it is becoming harder to find appropriate blood for you because you are developing antibodies to transfused blood. You have declined to wait for your transfusion today. We will hold a unit of blood for you, you need to keep the band on your right arm, the red 1 on so it is still valid and you need to return within 72 hours at the latest for the current unit of blood to be good. You should go to dialysis tomorrow. Forms: PCP List Discharge Date/Time: 05/11/23 21:20
[2023-05-11 17:24] LABS: ALBUMIN 3.5 g/dL (3.2-5.5); ALBUMIN/GLOBULIN RATIO 1.2 (1.0-2.2); ALKALINE PHOSPHATASE 176 IU/L (42-121); ALT ALANINE AMINOTRANSFERASE 11 IU/L (10-60); AST ASPARTATE AMINOTRANSFERASE 12 IU/L (10-42); BILIRUBIN,TOTAL 0.6 mg/dL (0.2-1.0); BUN - BLOOD UREA NITROGEN 50 mg/dL (6-20); CALCIUM 9.1 mg/dL (8.5-10.3); CARBON DIOXIDE - CO2 32 mmol/L (21-32); CHLORIDE 97 mmol/L (101-111); GFR - MDRD 9 (>89); GLUCOSE 131 mg/dL (74-104); POTASSIUM 3.8 mmol/L (3.5-4.5); SODIUM 139 mmol/L (135-145); TOTAL PROTEIN 6.4 g/dL (6.4-8.9)
[2023-05-11 17:26] LABS: LIPASE < 10 U/L (11-82)
--- NOTE | 2023-05-11 20:33 | ED Physician Documentation ---
ED Addendum - Addendum Addendum: 05/11/23 20:32 72-year-old gentleman signed out to me by Dr. Houston at shift change for a transfusion. He has been getting transfusions frequently. At this point because of his frequent transfusion he has developed autoantibodies and the crossmatch has been difficult for blood bank and time to crossmatch at this point is anticipated to be prolonged. Patient no longer wanting to wait for transfusion and plans to return for it. Disposition: Discharged home Condition: Stable
[2023-05-11 21:30] VITALS: BP 119/42; O2SAT 98
== END 2023-05-11 21:20 | disposition home or self-care (01) ==
LOC: EDUNIT# → ED 16:35
DX: E11.22 Type 2 diabetes mellitus with diabetic chronic kidney disease (principal); I12.0 Hypertensive chronic kidney disease with stage 5 chronic kidney disease or end stage renal disease; N18.6 End stage renal disease; Z99.2 Dependence on renal dialysis; J96.21 Acute and chronic respiratory failure with hypoxia; Z79.02 Long term (current) use of antithrombotics/antiplatelets; E11.9 Type 2 diabetes mellitus without complications
CPT/HCPCS: 36415; 80053; 81599; 83690; 85025; 86850; 86870; 86880; 86900; 86901; 86922; 99283

== ENCOUNTER 2023-05-13 22:29 | Outpatient (CLI) | payer MEDICARE, OTHER | END 2023-05-13 22:30 | LOC: EMS 22:29 | PROVIDERS: ATTEND Emergency Medicine | DX: R09.02 Hypoxemia (principal); Z99.81 Dependence on supplemental oxygen | CPT/HCPCS: A0425; A0428 ==

== ENCOUNTER 2023-05-16 08:00 | Outpatient (CLI) | payer MEDICARE, OTHER ==
[2023-05-16 20:31] LABS: BASOPHILS % (AUTO) 0.5 %; EOSINOPHILS # (AUTO) 0.9 10^3/uL (0.0-0.7); EOSINOPHILS % (AUTO) 20.6 %; HCT - HEMATOCRIT 25.3 % (42.0-52.0); HGB - HEMOGLOBIN 7.9 g/dL (14.0-18.0); LYMPHOCYTES # (AUTO) 0.4 10^3/uL (1.5-3.5); LYMPHOCYTES % (AUTO) 9.8 %; MEAN CORPUSCULAR HEMOGLOBIN 31.3 pg (27.0-31.0); MEAN CORPUSCULAR HGB CONC 31.2 g/dL (32.0-36.0); MEAN CORPUSCULAR VOLUME 100.4 fL (80.0-94.0); MEAN PLATELET VOLUME 10.6 fL (7.4-11.4); MONOCYTES # (AUTO) 0.3 10^3/uL (0.0-1.0); MONOCYTES % (AUTO) 7.7 %; NEUTROPHILS # (AUTO) 2.6 10^3/uL (1.5-6.6); NEUTROPHILS % (AUTO) 61.2 %; PLT - PLATELET COUNT 123 10^3/uL (130-450); RED BLOOD COUNT 2.52 10^6/uL (4.70-6.10); RED CELL DISTRIBUTION WIDTH 17.2 % (12.0-15.0); WHITE BLOOD COUNT 4.2 x10^3/uL (4.8-10.8)
== END 2023-05-16 23:59 | disposition home or self-care (01) ==
LOC: LAB.R 08:00
PROVIDERS: ATTEND Registered Nurse
DX: D63.1 Anemia in chronic kidney disease (principal)
CPT/HCPCS: 85025

== ENCOUNTER 2023-05-29 08:04 | Outpatient (CLI) | payer MEDICARE, OTHER | END 2023-05-29 08:05 | disposition critical access hospital (66) | LOC: EMS 08:04 | DX: R53.83 Other fatigue (principal) | CPT/HCPCS: A0425; A0429 ==

== ENCOUNTER 2023-05-29 08:15 | Emergency (ER) | payer MEDICARE, OTHER ==
--- NOTE | 2023-05-29 08:26 | ED Physician Documentation ---
History of Present Illness - Stated complaint Stated Complaint: AMS - Chief complaint Chief Complaint: General - History obtained from History obtained from: Patient, EMS - History of Present Illness Pain level max: 0 Pain level now: 0 - Additonal information Additional information: 72-year-old male presents to the emergency department with no complaints. He states he feels normal and feels fine. The custodial nurse called the ambulance because the nurse said that the was not as talkative as usual today. No other altered mental status. No confusion. No fevers. No cough. No vomiting. Patient is on dialysis. Has a history of chronic anemia. His dialysis days are Friday. Has dialysis tomorrow. Nothing makes it better or worse. No falls. No diarrhea. No urinary symptoms. Review of Systems Constitutional: denies: Fever, Chills Respiratory: denies: Cough GI: denies: Abdominal Pain, Nausea, Vomiting, Diarrhea Skin: denies: Rash Musculoskeletal: denies: Neck pain, Back pain Neurologic: denies: Seizure, Confused, Headache, LOC PD PAST MEDICAL HISTORY - Past Medical History Cardiovascular: Congestive heart failure, Hypertension, High cholesterol, PR Respiratory: Pneumonia, Other Endocrine/Autoimmune: Type 2 diabetes GI: None : Benign prostate hypertrophy, Dialysis, Renal insuffiency HEENT: None Psych: None Musculoskeletal: None Derm: Other - Past Surgical History Past Surgical History: Yes General: Appendectomy HEENT: Cataracts - Present Medications Home Medications: Ambulatory Orders Medication Instructions Recorded Confirmed Calcium Carbonate [Tums (Calcium 1,000 mg PO TID 03/13/23 05/13/23 Carbonate 500mg)] Clopidogrel Bisulfate [Plavix] 75 mg PO DAILY 03/13/23 03/13/23 Dorzolamide 2% Ophth Drops 1 drops BID 03/13/23 05/13/23 [Trusopt 2% Ophth Drops] Finasteride [Proscar] 5 mg PO DAILY 03/13/23 05/13/23 Furosemide [Lasix] 160 mg PO BID 03/13/23 05/13/23 Losartan Potassium 100 mg PO DAILY 03/13/23 05/13/23 Naloxone HCl Nasal [Narcan Nasal] 4 mg NS 03/13/23 Pantoprazole [Protonix] 40 mg PO QDAC 03/13/23 05/13/23 No122/Iron/Folic Acid 1 each PO DAILY 03/13/23 05/13/23 [ Multi Tablet] Senna [Senokot] 8.6 mg PO DAILY 03/13/23 05/13/23 Simvastatin [Zocor] 10 mg ORAL DAILY 03/13/23 05/13/23 Tamsulosin [Flomax] 0.4 mg PO BID 03/13/23 05/13/23 Timolol 0.5% Ophth Drops [Timoptic 1 drops DAILY 03/13/23 05/13/23 0.5% Ophth Drops] hydrOXYzine PAMOATE [Vistaril] 25 mg PO Q6HR PRN 03/13/23 05/13/23 oxyCODONE [Roxicodone] 5 mg PO Q8HR PRN 03/13/23 05/13/23 minoxidiL [Minoxidil] 2.5 mg PO DAILY 05/13/23 05/13/23 - Allergies Allergies/Adverse Reactions: Allergies Allergy/AdvReac Type Severity Reaction Status Date / Time No Known Drug Allergies Allergy Verified 05/13/23 11:15 - Social History Does the pt smoke?: No Smoking Status: Never smoker Does the pt drink ETOH?: No Does the pt have substance abuse?: No - Immunizations Immunizations are current?: Yes - POLST Patient has POLST: No PD ED PE NORMAL - Vitals Vital signs reviewed: Yes - General General: Alert and oriented X 3, No acute distress - HEENT HEENT: PERRL, Moist mucous membranes - Neck Neck: Supple, no meningeal sign - Cardiac Cardiac: RRR, Strong equal pulses - Respiratory Respiratory: No respiratory distress, Clear bilaterally - Abdomen Abdomen: Soft, Non tender, Non distended - Derm Derm: Warm and dry - Extremities Extremities: No edema, No calf tenderness / cord - Neuro Neuro: Alert and oriented X 3 - Psych Psych: Normal mood, Normal affect Results - Vitals Vitals: Vital Signs - 24 hr 05/29/23 08:27 Temperature 37.4 C Heart Rate 91 Respiratory 18 Rate Blood Pressure 129/77 O2 Saturation 91 L Oxygen O2 Source Nasal cannula - Labs Labs: Laboratory Tests 05/29/23 05/29/23 08:38 08:38 WBC 7.1 RBC 2.34 L Hgb 7.5 L Hct 24.7 L MCV 105.6 H MCH 32.1 H MCHC 30.4 L RDW 19.0 H Plt Count 115 L MPV 10.3 Neut # (Auto) 5.5 Lymph # (Auto) 0.4 L [place] # (Auto) 0.5 Eos # (Auto) 0.7 Baso # (Auto) 0.0 Absolute Nucleated RBC 0.00 Nucleated RBC % 0.0 Sodium 139 Potassium 4.4 Chloride 96 L Carbon Dioxide 29 Anion Gap 14.0 H BUN 35 H Creatinine 4.2 H Estimated GFR (MDRD) 14 L Glucose 106 H Calcium 9.5 Total Bilirubin 0.9 AST 29 ALT 14 Alkaline Phosphatase 192 H Total Protein 6.6 Albumin 3.9 Globulin 2.7 Albumin/Globulin Ratio 1.4 Lipase < 10 L PD Medical Decision Making - ED course Complexity details: reviewed results, re-evaluated patient, considered differential, d/w patient ED course: Patient is alert and oriented here. Appears to be at his normal baseline. He states he feels normal and did not want to come to the hospital today. He has no acute complaints. No fevers. No cough. No signs of infection. No significant lab abnormalities. No emergency medical condition at this time. Patient counseled regarding signs and symptoms for which I believe and urgent re-evaluation would be necessary. Patient with good understanding of and agreement to plan and is comfortable going home at this time This document was made in part using voice recognition software. While efforts are made to proofread this document, sound alike and grammatical errors may occur. Departure - Departure Disposition: 01 Home, Self Care Clinical Impression: Encounter for medical screening examination Chronic renal failure Qualifiers: Chronic kidney disease stage: unspecified stage Qualified Code(s): N18.9 - Chronic kidney disease, unspecified Anemia Qualifiers: Anemia type: unspecified type Qualified Code(s): D64.9 - Anemia, unspecified Condition: Good Instructions: ED Screening Exam Medical Nonurgent Follow-Up: your,doctor in 1 week [Other] Comments: Your vital signs do not show any significant acute maladies. Your hemoglobin is stable from prior. You do not have any complaints at this time. You are alert and oriented here. Please follow-up with your doctor as needed for any further care. Forms: PCP List
[2023-05-29 08:54] LABS: BASOPHILS % (AUTO) 0.4 %; EOSINOPHILS # (AUTO) 0.7 10^3/uL (0.0-0.7); EOSINOPHILS % (AUTO) 9.2 %; HCT - HEMATOCRIT 24.7 % (42.0-52.0); HGB - HEMOGLOBIN 7.5 g/dL (14.0-18.0); LYMPHOCYTES # (AUTO) 0.4 10^3/uL (1.5-3.5); LYMPHOCYTES % (AUTO) 6.2 %; MEAN CORPUSCULAR HEMOGLOBIN 32.1 pg (27.0-31.0); MEAN CORPUSCULAR HGB CONC 30.4 g/dL (32.0-36.0); MEAN CORPUSCULAR VOLUME 105.6 fL (80.0-94.0); MEAN PLATELET VOLUME 10.3 fL (7.4-11.4); MONOCYTES # (AUTO) 0.5 10^3/uL (0.0-1.0); MONOCYTES % (AUTO) 7.1 %; NEUTROPHILS # (AUTO) 5.5 10^3/uL (1.5-6.6); NEUTROPHILS % (AUTO) 76.8 %; PLT - PLATELET COUNT 115 10^3/uL (130-450); RED BLOOD COUNT 2.34 10^6/uL (4.70-6.10); WHITE BLOOD COUNT 7.1 x10^3/uL (4.8-10.8)
[2023-05-29 08:58] LABS: ALBUMIN 3.9 g/dL (3.2-5.5); ALBUMIN/GLOBULIN RATIO 1.4 (1.0-2.2); ALKALINE PHOSPHATASE 192 IU/L (42-121); ALT ALANINE AMINOTRANSFERASE 14 IU/L (10-60); AST ASPARTATE AMINOTRANSFERASE 29 IU/L (10-42); BILIRUBIN,TOTAL 0.9 mg/dL (0.2-1.0); BUN - BLOOD UREA NITROGEN 35 mg/dL (6-20); CALCIUM 9.5 mg/dL (8.5-10.3); CARBON DIOXIDE - CO2 29 mmol/L (21-32); CHLORIDE 96 mmol/L (101-111); CREATININE 4.2 mg/dL (0.6-1.3); GFR - MDRD 14 (>89); GLUCOSE 106 mg/dL (74-104); LIPASE < 10 U/L (11-82); POTASSIUM 4.4 mmol/L (3.5-4.5); SODIUM 139 mmol/L (135-145); TOTAL PROTEIN 6.6 g/dL (6.4-8.9)
[2023-05-29 11:51] VITALS: BP 103/59; O2SAT 88
== END 2023-05-29 11:44 | disposition home or self-care (01) ==
LOC: EDUNIT# → ED 08:15
DX: Z00.00 Encounter for general adult medical examination without abnormal findings (principal); I13.2 Hypertensive heart and chronic kidney disease with heart failure and with stage 5 chronic kidney disease, or end stage renal disease; I50.9 Heart failure, unspecified; N18.6 End stage renal disease; E11.22 Type 2 diabetes mellitus with diabetic chronic kidney disease; D63.1 Anemia in chronic kidney disease; Z99.2 Dependence on renal dialysis; E78.00 Pure hypercholesterolemia, unspecified; Z79.02 Long term (current) use of antithrombotics/antiplatelets; Z79.899 Other long term (current) drug therapy
CPT/HCPCS: 36415; 80053; 83690; 85025; 99282; 99283

== ENCOUNTER 2023-06-04 08:00 | Outpatient (CLI) | payer MEDICARE, OTHER ==
[2023-06-04 21:53] LABS: BASOPHILS % (AUTO) 0.5 %; EOSINOPHILS % (AUTO) 23.6 %; HCT - HEMATOCRIT 24.9 % (42.0-52.0); HGB - HEMOGLOBIN 7.4 g/dL (14.0-18.0); LYMPHOCYTES # (AUTO) 0.5 10^3/uL (1.5-3.5); LYMPHOCYTES % (AUTO) 11.1 %; MEAN CORPUSCULAR HEMOGLOBIN 31.5 pg (27.0-31.0); MEAN CORPUSCULAR HGB CONC 29.7 g/dL (32.0-36.0); MEAN PLATELET VOLUME 10.7 fL (7.4-11.4); MONOCYTES # (AUTO) 0.3 10^3/uL (0.0-1.0); MONOCYTES % (AUTO) 6.9 %; NEUTROPHILS # (AUTO) 2.4 10^3/uL (1.5-6.6); NEUTROPHILS % (AUTO) 57.7 %; PLT - PLATELET COUNT 123 10^3/uL (130-450); RED BLOOD COUNT 2.35 10^6/uL (4.70-6.10); RED CELL DISTRIBUTION WIDTH 19.1 % (12.0-15.0); WHITE BLOOD COUNT 4.1 x10^3/uL (4.8-10.8)
[2023-06-04 22:05] LABS: ALBUMIN 3.8 g/dL (3.2-5.5); ALBUMIN/GLOBULIN RATIO 1.6 (1.0-2.2); BILIRUBIN,TOTAL 0.6 mg/dL (0.2-1.0); CALCIUM 9.4 mg/dL (8.5-10.3); CREATININE 3.8 mg/dL (0.6-1.3); POTASSIUM 3.7 mmol/L (3.5-4.5); TOTAL PROTEIN 6.2 g/dL (6.4-8.9)
== END 2023-06-04 23:59 | disposition home or self-care (01) ==
LOC: LAB.R 08:00
DX: M86.171 Other acute osteomyelitis, right ankle and foot (principal)
CPT/HCPCS: 36415; 80053; 85025

== ENCOUNTER 2023-06-15 08:00 | Outpatient (CLI) | payer MEDICARE, OTHER ==
[2023-06-15 18:45] LABS: BASOPHILS % (AUTO) 0.5 %; EOSINOPHILS # (AUTO) 0.9 10^3/uL (0.0-0.7); EOSINOPHILS % (AUTO) 21.1 %; HCT - HEMATOCRIT 22.5 % (42.0-52.0); LYMPHOCYTES # (AUTO) 0.5 10^3/uL (1.5-3.5); MEAN CORPUSCULAR HEMOGLOBIN 32.7 pg (27.0-31.0); MEAN CORPUSCULAR HGB CONC 29.8 g/dL (32.0-36.0); MEAN CORPUSCULAR VOLUME 109.8 fL (80.0-94.0); MEAN PLATELET VOLUME 10.8 fL (7.4-11.4); MONOCYTES # (AUTO) 0.3 10^3/uL (0.0-1.0); MONOCYTES % (AUTO) 5.9 %; NEUTROPHILS # (AUTO) 2.6 10^3/uL (1.5-6.6); NEUTROPHILS % (AUTO) 61.3 %; PLT - PLATELET COUNT 114 10^3/uL (130-450); RED BLOOD COUNT 2.05 10^6/uL (4.70-6.10); RED CELL DISTRIBUTION WIDTH 18.8 % (12.0-15.0); WHITE BLOOD COUNT 4.3 x10^3/uL (4.8-10.8)
[2023-06-15 18:55] LABS: HGB - HEMOGLOBIN 6.7 g/dL (14.0-18.0); SLIDE REVIEW? Indicated
[2023-06-15 19:24] LABS: PLATELET ESTIMATE, MANUAL NORMAL (130-450,000) (NORMAL); PLATELET MORPHOLOGY NORMAL APPEARANCE (NORMAL); WBC MORPHOLOGY (MULTIPLE) NORMAL APPEARANCE (NORMAL)
== END 2023-06-15 23:59 | disposition home or self-care (01) ==
LOC: LAB.R 08:00
DX: J96.21 Acute and chronic respiratory failure with hypoxia (principal); D63.1 Anemia in chronic kidney disease
CPT/HCPCS: 36415; 85025

== ENCOUNTER 2023-06-19 08:00 | Outpatient (CLI) | payer MEDICARE, OTHER ==
[2023-06-19 20:26] LABS: GLUCOSE, URINE (UA) NEGATIVE (NEGATIVE); KETONES,URINE (UA) TRACE mg/dL (NEGATIVE); LEUKOCYTE ESTERASE, URINE MODERATE (NEGATIVE); NITRITE,URINE POSITIVE (NEGATIVE); OCCULT BLOOD,URINE LARGE (NEGATIVE); PH,URINE 7.5 PH (5.0-7.5); PROTEIN,URINE >=300 mg/dL (NEGATIVE); UROBILINOGEN,URINE 0.2 (NORMAL) E.U./dL (NORMAL)
[2023-06-19 20:32] LABS: BASOPHILS % (AUTO) 0.2 %; EOSINOPHILS # (AUTO) 0.7 10^3/uL (0.0-0.7); EOSINOPHILS % (AUTO) 8.5 %; HCT - HEMATOCRIT 23.3 % (42.0-52.0); LYMPHOCYTES # (AUTO) 0.5 10^3/uL (1.5-3.5); LYMPHOCYTES % (AUTO) 5.6 %; MEAN CORPUSCULAR HEMOGLOBIN 32.5 pg (27.0-31.0); MEAN CORPUSCULAR HGB CONC 29.2 g/dL (32.0-36.0); MEAN CORPUSCULAR VOLUME 111.5 fL (80.0-94.0); MEAN PLATELET VOLUME 10.6 fL (7.4-11.4); MONOCYTES # (AUTO) 0.5 10^3/uL (0.0-1.0); MONOCYTES % (AUTO) 6.6 %; NEUTROPHILS # (AUTO) 6.5 10^3/uL (1.5-6.6); NEUTROPHILS % (AUTO) 78.9 %; PLT - PLATELET COUNT 110 10^3/uL (130-450); RED BLOOD COUNT 2.09 10^6/uL (4.70-6.10); RED CELL DISTRIBUTION WIDTH 19.1 % (12.0-15.0); WHITE BLOOD COUNT 8.2 x10^3/uL (4.8-10.8)
[2023-06-19 20:41] LABS: HGB - HEMOGLOBIN 6.8 g/dL (14.0-18.0)
[2023-06-19 20:48] LABS: BACTERIA,URINE Few /HPF (None Seen); BILIRUBIN,URINE NEGATIVE (NEGATIVE); CLARITY,URINE CLOUDY (CLEAR); ICTOTEST,URINE NEGATIVE; RBC,URINE TNTC /HPF (0-5); SQUAMOUS EPITHELIAL CELL,UR FEW Squamous (<= Few); WBC,URINE >25 /HPF (0-3)
[2023-06-19 21:02] LABS: ALBUMIN 3.8 g/dL (3.2-5.5); ALBUMIN/GLOBULIN RATIO 1.3 (1.0-2.2); BILIRUBIN,TOTAL 0.7 mg/dL (0.2-1.0); CALCIUM 9.9 mg/dL (8.5-10.3); CREATININE 4.8 mg/dL (0.6-1.3); POTASSIUM 4.6 mmol/L (3.5-4.5); TOTAL PROTEIN 6.8 g/dL (6.4-8.9)
== END 2023-06-19 23:59 | disposition home or self-care (01) ==
LOC: LAB.R 08:00
PROVIDERS: ATTEND Registered Nurse
DX: I10 Essential (primary) hypertension (principal); D63.1 Anemia in chronic kidney disease; Z99.2 Dependence on renal dialysis
CPT/HCPCS: 80053; 81001; 81003; 85025

== ENCOUNTER 2023-06-24 22:11 | Outpatient (CLI) | payer MEDICARE, OTHER | END 2023-06-24 22:12 | disposition left against medical advice (07) | LOC: EMS 22:11 | DX: R05.9 Cough, unspecified (principal); J34.89 Other specified disorders of nose and nasal sinuses; R09.89 Other specified symptoms and signs involving the circulatory and respiratory systems ==

== ENCOUNTER 2023-06-25 08:00 | Outpatient (CLI) | payer MEDICARE, OTHER ==
[2023-06-25 22:39] LABS: BASOPHILS % (AUTO) 0.5 %; EOSINOPHILS # (AUTO) 0.7 10^3/uL (0.0-0.7); HCT - HEMATOCRIT 27.1 % (42.0-52.0); HGB - HEMOGLOBIN 8.3 g/dL (14.0-18.0); LYMPHOCYTES # (AUTO) 0.3 10^3/uL (1.5-3.5); LYMPHOCYTES % (AUTO) 7.7 %; MEAN CORPUSCULAR HGB CONC 30.6 g/dL (32.0-36.0); MEAN CORPUSCULAR VOLUME 104.6 fL (80.0-94.0); MEAN PLATELET VOLUME 10.4 fL (7.4-11.4); MONOCYTES # (AUTO) 0.4 10^3/uL (0.0-1.0); NEUTROPHILS % (AUTO) 68.3 %; PLT - PLATELET COUNT 115 10^3/uL (130-450); RED BLOOD COUNT 2.59 10^6/uL (4.70-6.10); RED CELL DISTRIBUTION WIDTH 19.5 % (12.0-15.0)
[2023-06-25 22:40] LABS: WHITE BLOOD COUNT 4.4 x10^3/uL (4.8-10.8)
[2023-06-25 22:51] LABS: ALBUMIN 3.5 g/dL (3.2-5.5); ALBUMIN/GLOBULIN RATIO 1.2 (1.0-2.2); BILIRUBIN,TOTAL 0.6 mg/dL (0.2-1.0); CALCIUM 9.4 mg/dL (8.5-10.3); CREATININE 3.7 mg/dL (0.6-1.3); POTASSIUM 4.4 mmol/L (3.5-4.5); TOTAL PROTEIN 6.5 g/dL (6.4-8.9)
== END 2023-06-25 23:59 | disposition home or self-care (01) ==
LOC: LAB.R 08:00
PROVIDERS: ATTEND Registered Nurse
DX: R78.81 Bacteremia (principal)
CPT/HCPCS: 80053; 85025

== ENCOUNTER 2023-07-01 10:11 | Outpatient (CLI) | payer MEDICARE, OTHER ==
--- NOTE | 2023-07-01 12:58 | XRAY Report ---
PROCEDURE: Chest 2 View X-Ray INDICATIONS: RULE OUT PNA TECHNIQUE: 2 views of the chest were acquired. COMPARISON: Chest x-ray, 10/17/2021. FINDINGS: Surgical changes and devices: None. Lungs and pleura: Bilateral perihilar infiltrates. Suspect small pleural effusions bilaterally. No p neumothorax. Mediastinum: Mediastinal contours appear normal. Heart size is mildly increased. Bones and chest wall: No suspicious bony lesions. Overlying soft tissues appear unremarkable. IMPRESSION: Bilateral perihilar infiltrates and small pleural effusions, compatible with pulmonary edema or volum e overload. Reviewed by: Jeannie Lugo MD on 07/01/2023 12:56 PM PST Approved by: Jeannie Lugo MD on 07/01/2023 12:56 PM PST Station ID: [id number]
== END 2023-07-01 10:12 | disposition home or self-care (01) ==
LOC: DI 10:11
PROVIDERS: ATTEND Registered Nurse
DX: J90 Pleural effusion, not elsewhere classified (principal); R91.8 Other nonspecific abnormal finding of lung field

== ENCOUNTER 2023-07-08 11:46 | Emergency (ER) | payer MEDICARE, OTHER ==
[2023-07-08 12:07] VITALS: BP 174/72; O2SAT 94
[2023-07-08] MEDS ORDERED: BACITRACIN ZINC OINT 1 PACKET TOP STA (12:35)
[2023-07-08] MEDS ORDERED: cephALEXin 250 MG CAPSULE PO STA (12:35)
--- NOTE | 2023-07-08 12:37 | ED Physician Documentation ---
History of Present Illness - Stated complaint Stated Complaint: LT FINGER BLISTER - Chief complaint Chief Complaint: Wound - Additonal information Additional information: Patient 72-year-old male presenting to the emergency department with injury to his left index finger. Reports burn to the tip of his index finger on the some soup 06/21/2023. Initially noted that he had some significant blistering and his fingernail eventually fell off. He comes in today because he has had some mild increased swelling and discomfort around the area as well as some swelling to the affected hand for the last week. Denies any fever, chills, chest pain, shortness of breath. Does have a past medical history significant for end-stage renal disease on hemodialysis Friday. Review of Systems Constitutional: denies: Fever Eyes: denies: Loss of vision Ears: denies: Loss of hearing, Drainage/discharge Nose: denies: Rhinorrhea / runny nose Throat: denies: Dental pain / toothache Cardiac: denies: Chest pain / pressure Respiratory: denies: Dyspnea GI: denies: Abdominal Pain : denies: Dysuria Skin: denies: Rash Musculoskeletal: denies: Neck pain Neurologic: denies: Generalized weakness Psychiatric: denies: Depressed PD PAST MEDICAL HISTORY - Past Medical History Past Medical History: Yes Cardiovascular: Congestive heart failure, Hypertension, High cholesterol, PR Respiratory: Pneumonia, Other Endocrine/Autoimmune: Type 2 diabetes GI: None : Benign prostate hypertrophy, Dialysis, Renal insuffiency HEENT: None Psych: None Musculoskeletal: None Derm: Other - Past Surgical History Past Surgical History: Yes General: Appendectomy HEENT: Cataracts - Present Medications Home Medications: Ambulatory Orders Medication Instructions Recorded Confirmed Calcium Carbonate [Tums (Calcium 1,000 mg PO TID 03/13/23 05/29/23 Carbonate 500mg)] Clopidogrel Bisulfate [Plavix] 75 mg PO DAILY 03/13/23 05/29/23 Dorzolamide 2% Ophth Drops 1 drops BID 03/13/23 05/29/23 [Trusopt 2% Ophth Drops] Finasteride [Proscar] 5 mg PO DAILY 03/13/23 05/29/23 Furosemide [Lasix] 160 mg PO BID 03/13/23 05/29/23 Losartan Potassium 100 mg PO DAILY 03/13/23 05/29/23 Naloxone HCl Nasal [Narcan Nasal] 4 mg NS ONCE 03/13/23 05/29/23 Pantoprazole [Protonix] 40 mg PO QDAC 03/13/23 05/29/23 No122/Iron/Folic Acid 1 each PO DAILY 03/13/23 05/29/23 [ Multi Tablet] Senna [Senokot] 8.6 mg PO DAILY 03/13/23 05/29/23 Simvastatin [Zocor] 10 mg ORAL DAILY 03/13/23 05/29/23 Tamsulosin [Flomax] 0.4 mg PO BID 03/13/23 05/29/23 Timolol 0.5% Ophth Drops [Timoptic 1 drops DAILY 03/13/23 05/29/23 0.5% Ophth Drops] oxyCODONE [Roxicodone] 5 mg PO Q8HR PRN 03/13/23 05/29/23 Ferrous Sulfate [Feosol] 325 mg PO DAILY 05/29/23 05/29/23 Folic Acid 1 mg PO DAILY 05/29/23 05/29/23 carvediloL [Coreg] 3.125 mg PO BID 05/29/23 05/29/23 hydrALAZINE [Apresoline] 10 mg PO .Q12HR 05/29/23 05/29/23 Bacitracin 3.5 gm TOP BID #3.5 gm 07/08/23 cephALEXin [Keflex] 500 mg PO Q6H #20 cap 07/08/23 - Allergies Allergies/Adverse Reactions: Allergies Allergy/AdvReac Type Severity Reaction Status Date / Time No Known Drug Allergies Allergy Verified 07/08/23 11:59 - Social History Does the pt smoke?: No Smoking Status: Former smoker Does the pt drink ETOH?: No Does the pt have substance abuse?: No - Immunizations Immunizations are current?: Yes - POLST Patient has POLST: No PD ED PE NORMAL - General General: Alert and oriented X 3 - HEENT HEENT: Atraumatic - Respiratory Respiratory: No respiratory distress - Extremities Extremities: No deformity - Neuro Neuro: Alert and oriented X 3, 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 Initially injured his finger by putting it in hot soup 06/21. Physical exam demonstrates well-established granulation tissue on the distal end of the finger. There is a strong and easily palpable pulse to the finger. He does have some soft tissue swelling along the dorsum of the hand. There is no overt erythema or induration appreciated and he has full and complete range of motion and appropriate route service representative strength to the affected hand. When asked about wound care he reports that he has not been doing anything. I did have a dressing placed here in the emergency department with the application of bacitracin. I will initiate a short course of Keflex as well as give instructions for bacitracin twice daily and regular dressing changes. I will encourage follow-up with primary care. Clear return precautions given. Departure - Departure Disposition: 01 Home, Self Care Clinical Impression: Finger injury Qualifiers: Encounter type: initial encounter Laterality: left Qualified Code(s): S69.92XA - Unspecified injury of left wrist, hand and finger(s), initial encounter Prescriptions: Bacitracin 3.5 gm TOP BID #3.5 gm cephALEXin [Keflex] 500 mg PO Q6H #20 cap Comments: Thank you for allowing us to care for you today [facility]. I have written a prescription for an oral antibiotic to begin taking as soon as possible. You received your first dose here in the emergency department. I would like you to do regular dressing changes once daily to your affected finger and apply bacitracin topical antibiotic ointment to the finger twice daily until it is fully healed. Please follow-up with your primary care doctor soon as possible. If it anytime you have new or worsening Symptoms please return.
== END 2023-07-08 12:50 | disposition home or self-care (01) ==
LOC: ED 11:46
DX: T23.022A Burn of unspecified degree of single left finger (nail) except thumb, initial encounter (principal); X10.1XXA Contact with hot food, initial encounter; Z87.891 Personal history of nicotine dependence
CPT/HCPCS: 99282; 99283; A9270

== ENCOUNTER 2023-07-16 14:38 | Outpatient (CLI) | payer MEDICARE, OTHER | END 2023-07-16 14:39 | disposition EMS.NT | LOC: EMS 14:38 | DX: R09.89 Other specified symptoms and signs involving the circulatory and respiratory systems (principal) ==

== ENCOUNTER 2023-07-30 22:14 | Outpatient (CLI) | payer MEDICARE, OTHER | END 2023-07-30 22:15 | disposition short-term general hospital (02) | LOC: EMS 22:14 | DX: R41.82 Altered mental status, unspecified (principal); R09.89 Other specified symptoms and signs involving the circulatory and respiratory systems; U07.1 COVID-19; Z99.2 Dependence on renal dialysis | CPT/HCPCS: A0425; A0427 ==

== ENCOUNTER 2023-08-27 10:57 | Outpatient (CLI) | payer MEDICARE, OTHER | END 2023-08-27 10:58 | disposition EMS.NT | LOC: EMS 10:57 | DX: S91.112A Laceration without foreign body of left great toe without damage to nail, initial encounter (principal); S80.811A Abrasion, right lower leg, initial encounter; W19.XXXA Unspecified fall, initial encounter; Y92.481 Parking lot as the place of occurrence of the external cause; Z99.2 Dependence on renal dialysis; Z99.81 Dependence on supplemental oxygen ==

== ENCOUNTER 2023-08-28 10:25 | Outpatient (CLI) | payer MEDICARE, OTHER | END 2023-08-28 10:26 | disposition short-term general hospital (02) | LOC: EMS 10:25 | DX: R46.89 Other symptoms and signs involving appearance and behavior (principal); R50.9 Fever, unspecified; M79.89 Other specified soft tissue disorders; Z99.2 Dependence on renal dialysis | CPT/HCPCS: A0425; A0429 ==